=== PATIENT | female | born 1980 | race Caucasian/White ===

== ENCOUNTER 2018-10-22 11:37 | Outpatient (CLI) | payer BC ==
[~2018-10-22] VITALS: Ht 167.6 cm; Wt 113.4 kg
[~2018-10-22 11:37] MED LIST: ACHD5005 PO; ACHYD1T PO; ALBU17AE23 PO; CEPH500C PO; CYCL10TA9 PO; DCS100C PO; FAMO-106 PO; FAMO10TA43 PO; FAMO10TA71 PO; FLUC200T31 PO; IBP800T PO; NAPR-243 PO; PHEN1SUP3 PR; PREN-115 PO; PRM25T PO; PROG100C6 PR; PROG50VI3 IM; RT-ALBUINH IH
[2018-10-22 11:44] VITALS: BP 114/67
[2018-10-22] MEDS ORDERED: RAME8TAB18 PO (11:54)
[2018-10-22 12:11] LABS: BASOPHILS # (AUTO) 0.1 10^3/uL (0.0-0.1); BASOPHILS % (AUTO) 1 % (0-10); EOSINOPHILS # (AUTO) 0.1 10^3/uL (0.0-0.3); EOSINOPHILS % (AUTO) 1 % (0-10); HEMATOCRIT 44 % (35-52); LYMPHOCYTES # (AUTO) 2.2 X 10^3 (1.0-4.0); LYMPHOCYTES % (AUTO) 21 % (12-44); MEAN CORPUSCULAR HEMOGLOBIN 30 PG (25-34); MEAN CORPUSCULAR HGB CONC 34 G/DL (32-36); MEAN CORPUSCULAR VOLUME 88 FL (80-99); MEAN PLATELET VOLUME 9.7 FL (7.4-10.4); MONOCYTES # (AUTO) 1.1 X 10^3 (0.0-1.0); MONOCYTES % (AUTO) 10 % (0-12); NEUTROPHILS # (AUTO) 6.9 X 10^3 (1.8-7.8); NEUTROPHILS % (AUTO) 67 % (42-75); PLATELET COUNT 312 10^3/uL (130-400); RED BLOOD COUNT 4.98 10^6/uL (4.35-5.85); RED CELL DISTRIBUTION WIDTH 14.5 % (10.0-14.5); WHITE BLOOD COUNT 10.3 10^3/uL (4.3-11.0)
[2018-10-22 12:11] LABS: BILIRUBIN,URINE NEGATIVE (NEGATIVE); CLARITY,URINE CLEAR; COLOR,URINE YELLOW; GLUCOSE, URINE (UA) NEGATIVE (NEGATIVE); KETONES,URINE NEGATIVE (NEGATIVE); LEUKOCYTE ESTERASE ,URINE 2+ (NEGATIVE); NITRITE,URINE NEGATIVE (NEGATIVE); PH,URINE 5 (5-9); PROTEIN,URINE NEGATIVE (NEGATIVE); UROBILINOGEN,URINE NORMAL (NORMAL)
[2018-10-22] MEDS ORDERED: RT-ALBUINH IH (12:17)
[2018-10-22] MEDS ORDERED: LAMO200T2 PO (12:17)
[2018-10-22] MEDS ORDERED: LURA20TA PO (12:17)
[2018-10-22 12:25] LABS: BACTERIA,URINE FEW /HPF
[2018-10-27] MEDS ORDERED: HYDR-34 PO (16:37)
[2018-10-27] MEDS ORDERED: IBUP-844 PO (16:37)
[2018-10-27] MEDS ORDERED: DOCU100C37 PO (16:37)
[2018-10-27] MEDS ORDERED: SIME80TA16 PO (16:37)
== END 2018-10-22 12:10 | disposition home or self-care (01) ==
LOC: PREOP 11:37
PROVIDERS: ATTEND Obstetrics & Gynecology
DX: Z01.812 Encounter for preprocedural laboratory examination (principal); Z11.2 Encounter for screening for other bacterial diseases; N92.0 Excessive and frequent menstruation with regular cycle; N94.6 Dysmenorrhea, unspecified; N81.4 Uterovaginal prolapse, unspecified
CPT/HCPCS: 36415; 81000; 85025; 86850; 86900; 86901; 87081; 87088

== ENCOUNTER 2018-10-27 06:00 | Day surgery (SDC) | payer BC, MEDICAID ==
[~2018-10-27] VITALS: Ht 167.6 cm; Wt 113.4 kg
[~2018-10-27 06:00] MED LIST changes: +LAMO200T2 PO; +LURA20TA PO; +RAME8TAB18 PO
--- OUTSIDE RECORDS SUMMARY | 2018-10-27 06:18 | XMS REPORT ---
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 Active 369979861 Problem Recurrent major depressive disorder, in partial remission F33.41 Active [id number] ALLERGIES No Information ENCOUNTERS Encounter Location Date Diagnosis [facility] [address] [place] [address] 81249- 5487 Nov, [facility] [id number] [place] [address] 74846- 6633 Aug, Bipolar depression F31.30 and Social anxiety disorder F40.10 [facility] [address] [place] [address] 11476- 9419 Jul, Bipolar depression F31.30 and Social anxiety disorder F40.10 [facility] [address] [place] [address] 96909- 1646 Jun, Bipolar depression F31.30 [facility] [id number] [place] [address] 42079- 2475 Jun, Bipolar depression F31.30 and Social anxiety disorder F40.10 [facility] [address] [id number], [place] [id number] Jun, Hordeolum internum of right upper eyelid H00.021 [facility] [address] [facility] [id number] [place] [address] May, Bipolar depression F31.30 and Social anxiety disorder F40.[address] [facility] [address] [id number], [place] 594003603 Apr, 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 [facility] [address] [id number], [place] [id number] Apr, Moderate major depression F32.[address] [facility] [address] [id number], [place] 552243135 March, Recurrent major depressive disorder, in partial remission F33.[address] [facility] [address] [id number], [place] [address] March, Recurrent major depressive disorder, in partial remission F33.[address] [facility] [address] [id number], [place] 2095[address]327 March, Moderate major depression F32.1 and Thrush B37.0 [facility] [address] [id number], [place] [address] Feb, [facility] [address] [id number], [place] 734172998 Feb, Moderate major depression F32.1 [facility] [address] [id number], [place] [address] Feb, Moderate major depression F32.1 and Thrush B37.0 [facility] [address] [id number], [place] [id number] Feb, [facility] [address] [facility] [id number] [address] Dec, Right acute otitis media H66.91 ; Cough R05 and Tobacco abuse Z72.[address] [facility] [address] [id number], [place] [address] Nov, Moderate major depression F32.1 and Acute hemorrhoid K64.[address] [facility] [address] [id number], [place] [id number] 14 Oct, 2017 Moderate major depression F32.1 ; History of asthma Z87.09 ; Tobacco use Z72.0 ; Tobacco abuse counseling Z71.6 ; Meralgia paresthetica of left side G57.12 ; Sore throat J02.9 and Strep throat J02.[address] [id number], [place] [id number] 12 Oct, 2017 [facility] [place] [id number] [place] [address] 82823 -5800 11 Sep, 2017 Pharyngitis due to other organism J02.8 [place] [id number] [place] [address] 53126- 4572 28 Jan, 2017 [place] [id number] [place] [address] 14230- 7450 14 Jan, 2017 Routine gynecological examination Z01.[address] [id number], [place] 240[address]15506 04 Jan, 2017 Acute recurrent frontal sinusitis J01.11 and Fever and chills R50.9 [facility] [place] [id number] [place] [address] 77508 -0798 10 Dec, 2016 Fever, unspecified fever cause R50.9 and Acute non- recurrent maxillary sinusitis J01.[address] [place] [address] 84864- 8169 03 Aug, 2016 [facility] [address] [id number], [place] [id number] Apr, Strep throat J02.0 [facility] [id number] [place] [address] [id number] 06 Apr, 2016 Conjunctivitis of right eye, unspecified conjunctivitis type H10.9 and Strep throat J02.[address] [id number], [place] [address]005[address] 04 Apr, 2016 Sore throat J02.9 [facility] [address] [facility] [id number] [place] [address] Oct, [facility] [address] [facility] [id number], [place] 224998[address] 8667 Oct, [facility] [address] [facility] [id number] [address] March, IMMUNIZATIONS No Known Immunizations SOCIAL HISTORY Never Assessed REASON FOR VISIT Psychiatric f/u. Nimo CEDILLO, Mood/ sleep/ social anxiety PLAN OF CARE Activity Details Follow Up 3 Months Reason: VITAL SIGNS MEDICATIONS Medication Instructions Dosage Frequency Start Date End Date Duration Status Ramelteon 8 MG Orally Once a day for sleep 1 tablet at bedtime as needed Jul, Active ProAir HFA 108 (90 Base) MCG/ACT Inhalation every 4 hrs 2 puffs as needed 4h Active Lamictal 200 MG Orally at bedtime 1 tablets May, Active Pristiq 100 MG Orally Once a day 1 tablet 24h Oct, Active RESULTS No Results PROCEDURES No Known procedures INSTRUCTIONS MEDICATIONS ADMINISTERED No Known Medications MEDICAL (GENERAL) HISTORY Type Description Date Medical History asthma Medical History depression ( prozac, pristiq, zoloft, celexa, wellbutrin) Medical History anxiety Medical History Chronic low back pain- missing vertebra Medical History Spina befida - close Medical History Degenerative disc disease Surgical History cholecystectomy Hospitalization History childbirth
--- OUTSIDE RECORDS SUMMARY | 2018-10-27 06:18 | XMS REPORT ---
Author Author FELIPE ZHANG [facility] Address [address] [place] [address] Care Team Providers Care Supervisor Pumping Station Name Role Phone FELIPE ZHANG Unavailable PROBLEMS Type Condition ICD9-CM Code GWH22-FD Code Onset Dates Condition Status SNOMED Code Problem Strep throat J02.0 Active 26010210 Problem Bipolar depression F31.30 Active 61891069 Problem Social anxiety disorder F40.10 Active 69508402 Problem Moderate major depression F32.1 Active 449964 Problem Meralgia paresthetica of left side G57.12 Active 80512753 Problem 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 Active 336016934 Problem Recurrent major depressive disorder, in partial remission F33.41 Active 86750505 ALLERGIES No Information ENCOUNTERS Encounter Location Date Diagnosis [facility] [address] [place] [address] 12351- 6959 Jul, [facility] [id number] [place] [address] 46703- 6956 Jun, Bipolar depression F31.30 [facility] [id number] [place] [address] 84351- 5646 Jun, Bipolar depression F31.30 and Social anxiety disorder F40.[address] [id number], [place] 606[address] Jun, Hordeolum internum of right upper eyelid H00.021 [facility] [id number] [place] [address] 78507- 5475 May, Bipolar depression F31.30 and Social anxiety disorder F40.10 [facility] [address] [id number], [place] [id number] Apr, 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 [facility] [address] [id number], [place] [address]2290423 Apr, Moderate major depression F32.[address] [facility] [address] [id number], [place] [id number] March, Recurrent major depressive disorder, in partial remission F33.[address] [facility] [address] [id number], [place] [address]32 March, Recurrent major depressive disorder, in partial remission F33.[address] [facility] [address] [id number], [place] [id number] March, Moderate major depression F32.1 and Thrush B37.0 [facility] [id number], [place] [id number] Feb, [facility] [address] [id number], [place] 477240729 Feb, Moderate major depression F32.1 [facility] [address] [id number], [place] 850651356 Feb, Moderate major depression F32.1 and Thrush B37.0 [facility] [address] [id number], [place] [id number] Feb, [facility] [address] [facility] [place] [id number] [place] [address]32[address] Dec, Right acute otitis media H66.91 ; Cough R05 and Tobacco abuse Z72.[address] [facility] [address] [id number], [place] 912749458 Nov, Moderate major depression F32.1 and Acute hemorrhoid K64.9 [facility] [address] [id number], [place] 709353362 Oct, Moderate major depression F32.1 ; History of asthma Z87.09 ; Tobacco use Z72.0 ; Tobacco abuse counseling Z71.6 ; Meralgia paresthetica of left side G57.12 ; Sore throat J02.9 and Strep throat J02.[address] [facility] [address] [id number], [place] [id number] Oct, [facility] [address]100[place] [address] Sep, Pharyngitis due to other organism J02.8 [facility] [address]100[place] [address] Jan, [facility] [id number] [place] [address] 16639- 3635 Jan, Routine gynecological examination Z01.[address] [id number], [place] 208845974 Jan, Acute recurrent frontal sinusitis J01.11 and Fever and chills R50.9 [facility] [address]100[place] [address] 10 Dec, 2016 Fever, unspecified fever cause R50.9 and Acute non- recurrent maxillary sinusitis J01.00 [facility] [address]100[place] [address] Aug, [address] [id number], [place] 7434[address] Apr, Strep throat J02.0 [address] [address] Apr, Conjunctivitis of right eye, unspecified conjunctivitis type H10.9 and Strep throat J02.[address] [id number], [place] 903454338 Apr, Sore throat J02.9 [facility] [address] [place] [address] 109052- 7071 Oct, [facility] [address]100[place] [address] 1257 Oct, [facility] [id number] [place] [address] 39220- 2511 March, IMMUNIZATIONS No Known Immunizations SOCIAL HISTORY Never Assessed REASON FOR VISIT f/archie Suero RN, depression PLAN OF CARE Activity Details Follow Up 6 Weeks Reason: VITAL SIGNS Height 67 in 2018-06-23 Weight 246 lbs 2018-06-23 Heart Rate 90 bpm 2018-06-23 Respiratory Rate 20 2018-06-23 BMI 38.52 kg/m2 2018-06-23 Blood pressure systolic 132 mmHg 2018-06-23 Blood pressure diastolic 86 mmHg 2018-06-23 MEDICATIONS Medication Instructions Dosage Frequency Start Date End Date Duration Status Lamictal 100 mg Orally at bedtime 1 tablets May, 30 day(s) Active Polytrim 59938-4.1 UNIT/ML Ophthalmic Four times a day 1 drop into affected eye 6h Jun, Jun, 5 day(s) Active ProAir HFA 108 (90 Base) MCG/ACT Inhalation every 4 hrs 2 puffs as needed 4h Active Pristiq 50 mg Orally Once a day 1 tablet 24h Oct, Active Quetiapine Fumarate 25 MG Orally at bedtime as needed for sleep 1 or 2 tablet Jun, 30 day(s) Active RESULTS No Results PROCEDURES No Known [...]
--- OUTSIDE RECORDS SUMMARY | 2018-10-27 06:18 | XMS REPORT ---
Author Author FELIPE ZHANG [facility] Address [address] [place] [address] Care Team Providers Care Advertising Dispatch Clerks Supervisor Name Role Phone LEATHA FELIPE Unavailable PROBLEMS Type Condition ICD9-CM Code OBG65-ZC Code Onset Dates Condition Status SNOMED Code Problem Strep throat J02.0 Active 30310408 Problem Bipolar depression F31.30 Active 14436071 Problem Social anxiety disorder F40.10 Active 41466799 Problem Moderate major depression F32.1 Active 016639 Problem Meralgia paresthetica of left side G57.12 Active 94110752 Problem 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 Active 674497249 Problem Recurrent major depressive disorder, in partial remission F33.41 Active 73800145 ALLERGIES No Information ENCOUNTERS Encounter Location Date Diagnosis [facility] [address]100[place] [address] Nov, [facility] [id number] [place] [address] 98608- 9922 Sep, [address] [address] [id number] [place] [address] Sep, BMI 40.0-44.9, adult Z68.41 and Acute nasopharyngitis J00 [facility] [address] [address] Sep, [facility] [address] [place] [address] 02202- 7184 Aug, Bipolar depression F31.30 and Social anxiety disorder F40.10 [facility] [address] [address] 0[address] Jul, Bipolar depression F31.30 and Social anxiety disorder F40.10 [facility] [address] [id number] [address] Jun, Bipolar depression F31.30 [facility] [address] [place] [id number] [address] Jun, Bipolar depression F31.30 and Social anxiety disorder F40.10 [facility] [id number] [place] [address] Jun, Hordeolum internum of right upper eyelid H00.021 [facility] [address] [place] [id number][place] [address]2 May, Bipolar depression F31.30 and Social anxiety disorder F40.10 [facility] [address] [id number] [place] [id number] Apr, 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 [facility] [address] [id number] [place] [address]506[address] Apr, Moderate major depression F32.1 [facility] [id number] [place] [id number] March, Recurrent major depressive disorder, in partial remission F33.41 [facility] [address] [id number] [place] 46[address] March, Recurrent major depressive disorder, in partial remission F33.41 [facility] [address] [id number] [place] 91269[address]32 March, Moderate major depression F32.1 and Thrush B37.0 [facility] [address] [id number] [place] [address]444 Feb, [facility] [address] [id number] [place] 739450510 Feb, Moderate major depression F32.[address] [facility] [address] [id number] [place] 27[address] Feb, Moderate major depression F32.1 and Thrush B37.0 [facility] [address] [id number] [place] 449480519 Feb, [facility] [address] [address] Dec, Right acute otitis media H66.91 ; Cough R05 and Tobacco abuse Z72.[address] [id number] [place] 513[address]274 Nov, Moderate major depression F32.1 and Acute hemorrhoid K64.[address] [id number] [place] [address] [id number] Oct, Moderate major depression F32.1 ; History of asthma Z87.09 ; Tobacco use Z72.0 ; Tobacco abuse counseling Z71.6 ; Meralgia paresthetica of left side G57.12 ; Sore throat J02.9 and Strep throat J02.[address] [id number] [place] 6[address]77[address] Oct, [facility] [id number] [place] [address] 60629 -4804 Sep, Pharyngitis due to other organism J02.8 [place] [id number] [place] [address] 69143- 0915 Jan, [place] [id number] [place] [address] 85408- 7852 Jan, Routine gynecological examination Z01.[address] [id number] [place] [address] [id number] 04 Jan, 2017 Acute recurrent frontal sinusitis J01.11 and Fever and chills R50.9 [facility] [id number] [place] [address] 23604 -5662 10 Dec, 2016 Fever, unspecified fever cause R50.9 and Acute non- recurrent maxillary sinusitis J01.00 [place] [address] [place] [address] 29147- 2304 Aug, [address] [id number] [place] [id number] Apr, Strep throat J02.0 [place] [address] [facility] [address] [id number] [place] [address] Apr, Conjunctivitis of right eye, unspecified conjunctivitis type H10.9 and Strep throat J02.0 [place] [address] [facility] [address] [id number] [place] [address] Apr, Sore throat J02.9 [facility] [address] [place] [id number][place] [address]- [address] Oct, [place] [address] [place] [id number] [address]- 2546 Oct, [place] [address] [place] [id number], [place] [address]- [address] March, IMMUNIZATIONS No Known Immunizations SOCIAL HISTORY Never Assessed REASON FOR VISIT Medication question PLAN OF CARE VITAL SIGNS MEDICATIONS Medication Instructions Dosage Frequency Start Date End Date Duration Status Latuda 20 mg Orally for depression. Take in the evening with a meal (350 calories) 1 tablet Sep, 30 day(s) Active RESULTS No Results PROCEDURES [...]
--- OUTSIDE RECORDS SUMMARY | 2018-10-27 06:18 | XMS REPORT ---
Author Author NATALIE ARGUETA [facility] Address [address] [place] [address] Care Team Providers Care Electrical Instrument Repairer Name Role Phone NATALIE ARGUETA Unavailable PROBLEMS Type Condition ICD9-CM Code GFB22-VR Code Onset Dates Condition Status SNOMED Code Problem Strep throat J02.0 Active 26325718 Problem Bipolar depression F31.30 Active 13422320 Problem Social anxiety disorder F40.10 Active 48509325 Problem Moderate major depression F32.1 Active 074683 Problem Meralgia paresthetica of left side G57.12 Active 00272736 Problem 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 Active 472793958 Problem Recurrent major depressive disorder, in partial remission F33.41 Active 03218576 ALLERGIES Substance Reaction Event Type Date Status Depo-Provera fluid retention Drug Allergy Jun, Active Abilify GI distress Drug Allergy Jun, Active ENCOUNTERS Encounter Location Date Diagnosis [facility] [address] [place] [address] 75171- 3401 Jul, [facility] [address] [place] [address] 10971- 7305 Jun, Bipolar depression F31.30 [facility] [id number] [place] [address] 20640- 4715 Jun, Bipolar depression F31.30 and Social anxiety disorder F40.[address] [id number] [place] [id number] Jun, Hordeolum internum of right upper eyelid H00.021 [facility] [address] [place] [address] 98749- 0033 May, Bipolar depression F31.30 and Social anxiety disorder F40.10 [facility] [address] [id number] [place] [id number] Apr, 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 [facility] [address] [id number] [place] [address] Apr, Moderate major depression F32.[address] [facility] [address] [id number] [place], [place] 318357561 March, Recurrent major depressive disorder, in partial remission F33.[address] [facility] [address] [id number] [place], [place] 811242824 March, Recurrent major depressive disorder, in partial remission F33.[address] [facility] [address] [id number] [place] 62[address] March, Moderate major depression F32.1 and Thrush B37.0 [facility] [address] [id number] [place] [address] Feb, [facility] [address] [id number] [place], [place] [id number] Feb, Moderate major depression F32.1 [facility] [address] [id number] [place], [place] 732991544 Feb, Moderate major depression F32.1 and Thrush B37.0 [facility] [address] [id number] CITY, [place] [id number] Feb, [facility] [address] [facility] [id number], [place] [address]75 [address] Dec, Right acute otitis media H66.91 ; Cough R05 and Tobacco abuse Z72.0 [facility] [address] [id number] [place], [place] 24[address]657 Nov, Moderate major depression F32.1 and Acute hemorrhoid K64.9 [facility] [id number] [place], [place] 338369078 Oct, Moderate major depression F32.1 ; History of asthma Z87.09 ; Tobacco use Z72.0 ; Tobacco abuse counseling Z71.6 ; Meralgia paresthetica of left side G57.12 ; Sore throat J02.9 and Strep throat J02.[address] [id number] [place] [id number] Oct, [facility] [address] [place] [address] 25434 -2564 Sep, Pharyngitis due to other organism J02.8 [facility] [address] [address]57- 6362 Jan, [place] [id number] [place] [address] 33002- 1329 14 Jan, 2017 Routine gynecological examination Z01.419 [address] [place] [address] [id number] Jan, Acute recurrent frontal sinusitis J01.11 and Fever and chills R50.9 [facility] IN [facility] [id number] [place] [address] 72661 -0132 10 Dec, 2016 Fever, unspecified fever cause R50.9 and Acute non- recurrent maxillary sinusitis J01.00 [place] [id number] [place] [address] 91398- 1115 Aug, [address] [place] [address] [id number] Apr, Strep throat J02.0 [address] [place] [address] [id number] Apr, Conjunctivitis of right eye, unspecified conjunctivitis type H10.9 and Strep throat J02.0 [address] [place] [address] [id number] Apr, Sore throat J02.9 [facility] [id number] [place] [address] 03054- 0357 Oct, [place] [id number] [place] [address] 60006- 7224 Oct, [facility] [address] [facility] [id number] [place] [address] March, IMMUNIZATIONS No Known Immunizations SOCIAL HISTORY Never Assessed REASON FOR VISIT Right eye swollen flipped up eye lid last night and puss came out from under it looked like pocket under it. ADaniels specialist physician PLAN OF CARE Activity Details Follow Up prn Reason: VITAL SIGNS Height 67 in 2018-06-20 Weight 248.5 lbs 2018-06-20 Temperature 98.5 degrees Fahrenheit 2018-06-20 Heart Rate 88 bpm 2018-06-20 Respiratory Rate 18 2018-06-20 BMI 38.92 kg/m2 2018-06-20 Blood pressure systolic 120 mmHg 2018-06-20 Blood pressure diastolic 82 mmHg 2018-06-20 MEDICATIONS Medication Instructions Dosage Frequency Start Date End Date Duration Status ProAir HFA 108 (90 Base) MCG/ACT Inhalation every 4 hrs 2 puffs as needed 4h Active Polytrim 18961-9.1 UNIT/ML Ophthalmic Four times a day 1 drop into affected eye 6h Jun, Jun, 5 day(s) Active Pristiq 50 mg Orally Once a day 1 tablet 24h Oct, Active Lamictal 25 MG Orally for 2 weeks. On 06/02 take 2 tablets at bedtime and continue 1 tablets May, 30 day(s) Active RESULTS No Results PROCEDURES [...]
--- OUTSIDE RECORDS SUMMARY | 2018-10-27 06:18 | XMS REPORT ---
Author Author FELIPE ZHANG [facility] Address [address] [place] [address] Care Team Providers Care Biomedical Equipment Technician Name Role Phone LEATHA FELIPE Unavailable PROBLEMS Type Condition ICD9-CM Code XNH17-HJ Code Onset Dates Condition Status SNOMED Code Problem Strep throat J02.0 Active 87532252 Problem Bipolar depression F31.30 Active 69940903 Problem Social anxiety disorder F40.10 Active 70405825 Problem Moderate major depression F32.1 Active 163752 Problem Meralgia paresthetica of left side G57.12 Active 18860015 Problem 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 Active 671271671 Problem Recurrent major depressive disorder, in partial remission F33.41 Active 69138097 ALLERGIES Substance Reaction Event Type Date Status Depo-Provera fluid retention Drug Allergy Jul, Active Ambien hallucination Drug Allergy Jul, Active Abilify GI distress Drug Allergy Jul, Active ENCOUNTERS Encounter Location Date Diagnosis [facility] [address] [id number] [address] Aug, [facility] [address], [place] [address] Jul, Bipolar depression F31.30 and Social anxiety disorder F40.10 [facility] [address] [id number], [place] [address] Jun, Bipolar depression F31.30 [facility] [address] [place] [address] Jun, Bipolar depression F31.30 and Social anxiety disorder F40.[address] [id number][place] 586[address] Jun, Hordeolum internum of right upper eyelid H00.021 [facility] [address] [facility] [id number] [place] [address] May, Bipolar depression F31.30 and Social anxiety disorder F40.[address] [facility] [address] [id number], [place] [id number] Apr, 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 [facility] [address] [id number], [place] 835135366 Apr, Moderate major depression F32.[address] [facility] [address] [id number], [place] [id number] March, Recurrent major depressive disorder, in partial remission F33.[address] [facility] [address] [id number], [place] 144337214 March, Recurrent major depressive disorder, in partial remission F33.[address] [facility] [address] [id number], [place] [id number] March, Moderate major depression F32.1 and Thrush B37.[address] [facility] [address] [id number], [place] [id number] Feb, [facility] [address] [id number][place] [id number] Feb, Moderate major depression F32.[address] [facility] [address] [id number], [place] 825299526 Feb, Moderate major depression F32.1 and Thrush B37.0 [facility] [address] [id number], [place] [id number] Feb, [facility] [address] [facility] [id number], [place] [address] Dec, Right acute otitis media H66.91 ; Cough R05 and Tobacco abuse Z72.[address] [facility] [address] [id number], [place] [id number] Nov, Moderate major depression F32.1 and Acute hemorrhoid K64.[address] [facility] [address] [id number], [place] 0399[address] 14 Oct, 2017 Moderate major depression F32.1 ; History of asthma Z87.09 ; Tobacco use Z72.0 ; Tobacco abuse counseling Z71.6 ; Meralgia paresthetica of left side G57.12 ; Sore throat J02.9 and Strep throat J02.[address] [id number], [place] [id number] 12 Oct, 2017 [facility]ALK [facility] [address] [place] [address] 11 Sep, 2017 Pharyngitis due to other organism J02.8 [id number] [place] [address] 28 Jan, 2017 [id number] [place] [address] 14 Jan, 2017 Routine gynecological examination Z01.[address] [id number], [place] [id number] 04 Jan, 2017 Acute recurrent frontal sinusitis J01.11 and Fever and chills R50.9 [facility] [address] [place] [address] 10 Dec, 2016 Fever, unspecified fever cause R50.9 and Acute non- recurrent maxillary sinusitis J01.00 [address] [place] [address] 03 Aug, [address] [id number], [place] [id number] Apr, Strep throat J02.[id number] [place] [id number] 06 Apr, 2016 Conjunctivitis of right eye, unspecified conjunctivitis type H10.9 and Strep throat J02.[address] [id number], [place] [id number] Apr, Sore throat J02.9 [facility] [address] [facility] [id number], [place] [address] Oct, [facility] [address] [facility] [id number], [place] [address] Oct, [facility] [address] [facility] [id number], [place] [address] March, IMMUNIZATIONS No Known Immunizations SOCIAL HISTORY Never Assessed REASON FOR VISIT f/u Venkat, mood / anxiety PLAN OF CARE Activity Details Follow Up 6 Weeks Reason: VITAL SIGNS Height 67 in 2018-08-06 Weight 252.2 lbs 2018-08-06 Heart Rate 100 bpm 2018-08-06 Respiratory Rate 22 2018-08-06 BMI 39.50 kg/m2 2018-08-06 Blood pressure systolic 144 mmHg 2018-08-06 Blood pressure diastolic 78 mmHg 2018-08-06 MEDICATIONS Medication Instructions Dosage Frequency Start Date End Date Duration Status Pristiq 50 mg Orally Once a day 1 tablet 24h Oct, Active Ramelteon 8 MG Orally Once a day for sleep 1 tablet at bedtime as needed Jul, Active Lamictal 200 MG Orally at bedtime 1 tablets May, Active ProAir HFA 108 (90 Base) MCG/ACT Inhalation every 4 hrs 2 puffs as needed 4h Active RESULTS No Results PROCEDURES No Known [...]
--- OUTSIDE RECORDS SUMMARY | 2018-10-27 06:18 | XMS REPORT ---
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 Active 682161308 Problem Recurrent major depressive disorder, in partial remission F33.41 Active 08204958 ALLERGIES No Information ENCOUNTERS Encounter Location Date Diagnosis [facility] [address] [place] [address] Nov, [facility] [id number] [place] [address]- [address] Sep, [facility] [id number] [place] [address] Aug, Bipolar depression F31.30 and Social anxiety disorder F40.10 [facility] [address] [place] [address] Jul, Bipolar depression F31.30 and Social anxiety disorder F40.10 [facility] [address] [place] [address]- [address] Jun, Bipolar depression F31.30 [facility] [address], [place] [address] Jun, Bipolar depression F31.30 and Social anxiety disorder F40.10 [facility] [address] [id number], [place] [id number] Jun, Hordeolum internum of right upper eyelid H00.021 [facility] [address], [place] [address] May, Bipolar depression F31.30 and Social anxiety disorder F40.10 [facility] [address] [id number], [place] [id number] Apr, 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 [facility] [address] [id number], [place] 334340152 Apr, Moderate major depression F32.1 [facility] [address] [id number], [place] [id number] March, Recurrent major depressive disorder, in partial remission F33.41 [facility] [address] [id number], [place] 406698306 March, Recurrent major depressive disorder, in partial remission F33.[address] [facility] [address] [id number], [place] 136064356 March, Moderate major depression F32.1 and Thrush B37.0 [facility] [address] [id number], [place] [id number] Feb, [facility] [address] [id number], [place] [id number] Feb, Moderate major depression F32.[address] [facility] [address] [id number], [place] 406646985 Feb, Moderate major depression F32.1 and Thrush B37.0 [facility] [address] [id number], [place] [id number] Feb, [facility] [address] [facility] [id number], [place] [address] Dec, Right acute otitis media H66.91 ; Cough R05 and Tobacco abuse Z72.0 [facility] [address] [id number], [place] [id number] Nov, Moderate major depression F32.1 and Acute hemorrhoid K64.[address] [id number], [place] [id number] Oct, Moderate major depression F32.1 ; History of asthma Z87.09 ; Tobacco use Z72.0 ; Tobacco abuse counseling Z71.6 ; Meralgia paresthetica of left side G57.12 ; Sore throat J02.9 and Strep throat J02.[address] [id number], [place] [id number] Oct, [facility]ALK IN [facility] [id number] [place] [address]19 -[address] Sep, Pharyngitis due to other organism J02.8 [id number] [place] [address] 80552- 6206 Jan, [facility] [id number] [place] [address] 06911- [address]27 14 Jan, 2017 Routine gynecological examination Z01.[address] [id number], [place] [id number] Jan, Acute recurrent frontal sinusitis J01.11 and Fever and chills R50.9 [facility] [address] [place] [address] 10 Dec, 2016 Fever, unspecified fever cause R50.9 and Acute non- recurrent maxillary sinusitis J01.00 [facility] [address], [place] [address] Aug, [address] [id number], [place] 997247270 Apr, Strep throat J02.[address] [id number], [place] 462675544 Apr, Conjunctivitis of right eye, unspecified conjunctivitis type H10.9 and Strep throat J02.[address] [id number] [place] [address] Apr, Sore throat J02.9 [facility] [address] [facility] [id number][place]18[place] Oct, [facility] [address] [facility] [id number], [place] 29401086- 4717 Oct, [facility] [address] [facility] [id number], [place] 27400700[address] March, IMMUNIZATIONS No Known Immunizations SOCIAL HISTORY Never Assessed REASON FOR VISIT Medication question PLAN OF CARE VITAL SIGNS MEDICATIONS Unknown Medications RESULTS No Results PROCEDURES No Known procedures [...]
--- OUTSIDE RECORDS SUMMARY | 2018-10-27 06:18 | XMS REPORT ---
Author Author FELIPE ZHNAG [facility] Address [address] [place] [address] Care Team Providers Care Route Process Administrator Name Role Phone LEATHA FELIPE Unavailable PROBLEMS Type Condition ICD9-CM Code XRU25-SW Code Onset Dates Condition Status SNOMED Code Problem Strep throat J02.0 Active 77612779 Problem Bipolar depression F31.30 Active 34489771 Problem Social anxiety disorder F40.10 Active 12664047 Problem Moderate major depression F32.1 Active 359440 Problem Meralgia paresthetica of left side G57.12 Active 93696928 Problem 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 Active 763243924 Problem Recurrent major depressive disorder, in partial remission F33.41 Active 20687888 ALLERGIES No Information ENCOUNTERS Encounter Location Date Diagnosis [facility] [address] [place] [address] 6[address]38- [address] Aug, [facility] [id number] [place] [address] 67431- 9925 Jul, Bipolar depression F31.30 and Social anxiety disorder F40.10 [facility] [address] [place] [address] 45604- 8398 Jun, Bipolar depression F31.30 [facility] [id number] [place] [address] 61187- 2602 Jun, Bipolar depression F31.30 and Social anxiety disorder F40.10 [facility] [address] [id number], [place] 701563773 Jun, Hordeolum internum of right upper eyelid H00.021 [facility] [id number] [place] [address] 33785- 6586 May, Bipolar depression F31.30 and Social anxiety disorder F40.10 [facility] [address] [id number], [place] [id number] 15 Apr, 2018 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 [facility] [address] [id number], [place] 327953058 Apr, Moderate major depression F32.[address] [facility] [address] [id number], [place] [id number] March, Recurrent major depressive disorder, in partial remission F33.[address] [facility] [address] [id number], [place] [id number] March, Recurrent major depressive disorder, in partial remission F33.[address] [facility] [address] [id number], [place] 757370324 March, Moderate major depression F32.1 and Thrush B37.0 [facility] [address] [id number], [place] [id number] Feb, [facility] [address] [id number], [place] 468359425 Feb, Moderate major depression F32.1 [facility] [address] [id number], [place] 562767109 Feb, Moderate major depression F32.1 and Thrush B37.0 [facility] [address] [id number], [place] [id number] Feb, [facility] [address] [facility] [id number], [place] 97559696 [address] Dec, Right acute otitis media H66.91 ; Cough R05 and Tobacco abuse Z72.0 [facility] [address] [id number], [place] 350992760 Nov, Moderate major depression F32.1 and Acute hemorrhoid K64.[address] [facility] [address] [id number], [place] 093709491 Oct, Moderate major depression F32.1 ; History of asthma Z87.09 ; Tobacco use Z72.0 ; Tobacco abuse counseling Z71.6 ; Meralgia paresthetica of left side G57.12 ; Sore throat J02.9 and Strep throat J02.0 [id number] [id number] Oct, [facility] [address] [place] [address]4717 -[address] Sep, Pharyngitis due to other organism J02.8 [facility] [id number] [place] [address] 39756- 0203 Jan, [facility] [address] [address] Jan, Routine gynecological examination Z01.419 [address]005[address] [address] Jan, Acute recurrent frontal sinusitis J01.11 and Fever and chills R50.9 [facility] [address] [place] [address] 28794 -[address]8 Dec, Fever, unspecified fever cause R50.9 and Acute non- recurrent maxillary sinusitis J01.00 [facility] [address] [id number], [place] [address] Aug, [address] [id number], [place] [id number] Apr, Strep throat J02.0 [address] [place] [address] [id number] 06 Apr, 2016 Conjunctivitis of right eye, unspecified conjunctivitis type H10.9 and Strep throat J02.0 [address] [place] [address] [id number] Apr, Sore throat J02.9 [facility] [address] [place] [address] 54702- 3586 Oct, [facility] [address] 76119KS [place] [address] Oct, [facility] [address] [facility] [id number] [place] [address] March, IMMUNIZATIONS No Known Immunizations SOCIAL HISTORY Never Assessed REASON FOR VISIT medication PLAN OF CARE VITAL SIGNS MEDICATIONS Medication Instructions Dosage Frequency Start Date End Date Duration Status Lamictal 200 MG Orally at bedtime 1 tablets May, Active RESULTS No Results PROCEDURES No Known [...]
--- OUTSIDE RECORDS SUMMARY | 2018-10-27 06:19 | XMS REPORT ---
Author Author JOEL WESTFALL [facility] Address Unknown Phone Unavailable Care Team Providers Care Artist Model Name Role Phone JOEL WESTFALL Unavailable Unavailable PROBLEMS Type Condition ICD9-CM Code VUW22-UG Code Onset Dates Condition Status SNOMED Code Problem Strep throat J02.0 Active 79012231 Problem Bipolar depression F31.30 Active 78691184 Problem Social anxiety disorder F40.10 Active 20222081 Problem Moderate major depression F32.1 Active 960224 Problem Meralgia paresthetica of left side G57.12 Active 96581689 Problem 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 Active 829971674 Problem Recurrent major depressive disorder, in partial remission F33.41 Active 03528702 ALLERGIES No Information ENCOUNTERS Encounter Location Date Diagnosis [facility] [address] [id number], [place] [address] Jun, [facility] [address] [facility] [id number][place] [address] May, Bipolar depression F31.30 and Social anxiety disorder F40.10 [facility] [address] [id number] [place]STLE[place] [id number] Apr, 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 [facility] [address] [id number] CASTLE, [place] 148957568 Apr, Moderate major depression F32.1 [facility] [address] [id number] [place] 8319536[address] March, Recurrent major depressive disorder, in partial remission F33.41 [facility] [address] [id number] CASTLE, [place] 575696306 March, Recurrent major depressive disorder, in partial remission F33.41 [facility] [address] [id number] CASTLE, [place] [id number] March, Moderate major depression F32.1 and Thrush B37.0 [facility] [address] [id number] CASTLE, [place] [id number] Feb, [facility] [address] [id number] CASTLE, [place] 953798655 Feb, Moderate major depression F32.1 [facility] [address] [facility] [address] [id number] [place]STLE, [place] [id number] Feb, Moderate major depression F32.1 and Thrush B37.0 [facility] [address] [id number] CASTLE, [place] [id number] Feb, [facility] [address] [id number] [address] Dec, Right acute otitis media H66.91 ; Cough R05 and Tobacco abuse Z72.0 [facility] [address] [place] [address] AV [id number] CASTLE, [place] [id number] Nov, Moderate major depression F32.1 and Acute hemorrhoid K64.9 [facility] [address] [place] [address] AVE [id number] CASTLE, [place] 562766289 Oct, Moderate major depression F32.1 ; History of asthma Z87.09 ; Tobacco use Z72.0 ; Tobacco abuse counseling Z71.6 ; Meralgia paresthetica of left side G57.12 ; Sore throat J02.9 and Strep throat J02.0 [facility] [address] [place] [address] AVE [id number] CASTLE, [place] [id number] Oct, [facility] [address] [facility] [id number], [place] [address] Sep, Pharyngitis due to other organism J02.8 [facility] [address] [id number] [address] 28 Jan, 2017 [facility] [address] [id number] [address] 14 Jan, 2017 Routine gynecological examination Z01.419 [facility] [address] [id number] CASTLE[place] [id number] Jan, Acute recurrent frontal sinusitis J01.11 and Fever and chills R50.9 [facility] [address]00565100[place] [address] 10 Dec, 2016 Fever, unspecified fever cause R50.9 and Acute non- recurrent maxillary sinusitis J01.00 [facility] [address]00565100[place], [place] [address] Aug, [address] [id number] CASTLE[place] [id number] Apr, Strep throat J02.0 [address] [place] [address] [id number] Apr, Conjunctivitis of right eye, unspecified conjunctivitis type H10.9 and Strep throat J02.0 [address]00565100[place] [id number] Apr, Sore throat J02.9 [facility] [address]00565100[place] [address] Oct, [facility] [address] [place] [address]33- [address]118 Oct, [facility] [address]00565100[place] [address] March, IMMUNIZATIONS No Known Immunizations SOCIAL HISTORY Never Assessed REASON FOR VISIT [facility] Contact PLAN OF CARE Activity Details Follow Up Will likely use services in near future. Reason:hx. of depression VITAL SIGNS MEDICATIONS Unknown Medications RESULTS No [...]
--- OUTSIDE RECORDS SUMMARY | 2018-10-27 06:19 | XMS REPORT ---
Author Author ANGELA TELLO [facility] Address [address] [place] [address] Care Team Providers Care [place] Examiner Name Role Phone ANGELA TELLO Unavailable PROBLEMS Type Condition ICD9-CM Code QIC73-IP Code Onset Dates Condition Status SNOMED Code Problem Strep throat J02.0 Active 79075119 Problem Bipolar depression F31.30 Active 20555016 Problem Social anxiety disorder F40.10 Active 86158047 Problem Moderate major depression F32.1 Active 848988 Problem Meralgia paresthetica of left side G57.12 Active 25928036 Problem 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 Active 422952681 Problem Recurrent major depressive disorder, in partial remission F33.41 Active [id number] ALLERGIES No Information ENCOUNTERS Encounter Location Date Diagnosis [facility] [address] [facility] [id number], [place] [address] Jun, [facility] [address] [id number], [place] [address] May, Bipolar depression F31.30 and Social anxiety disorder F40.[address] [id number], [place] [id number] Apr, 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 [address] [id number], [place] [id number] March, Recurrent major depressive disorder, in partial remission F33.41 [facility] [address] [id number], [place] [address]187 March, Recurrent major depressive disorder, in partial remission F33.[address] [facility] [address] [id number], [place] [address] March, Moderate major depression F32.1 and Thrush B37.0 [facility] [address] [id number], [place] [id number] Feb, [facility] [address] [id number], [place] [address] Feb, Moderate major depression F32.1 [facility] [address] [id number], [place] [id number] Feb, Moderate major depression F32.1 and Thrush B37.0 [facility] [address] [id number], [place] 1918[address] Feb, [facility] [address]00565100[place], [place] [address] Dec, Right acute otitis media H66.91 ; Cough R05 and Tobacco abuse Z72.0 [facility] [address] [id number], [place] [address] Nov, Moderate major depression F32.1 and Acute hemorrhoid K64.9 [facility] [address] [place] [address] AVE [id number], [place] [address] Oct, Moderate major depression F32.1 ; History of asthma Z87.09 ; Tobacco use Z72.0 ; Tobacco abuse counseling Z71.6 ; Meralgia paresthetica of left side G57.12 ; Sore throat J02.9 and Strep throat J02.0 [facility] [address] [id number], [place] [address] Oct, [facility] [address] [place] [address] Sep, Pharyngitis due to other organism J02.8 [facility] [address] [place] [address] Jan, [facility] [id number] [place] [address] Jan, Routine gynecological examination Z01.419 [facility] [address] [facility] [address] [id number], [place] [address] Jan, Acute recurrent frontal sinusitis J01.11 and Fever and chills R50.9 [facility] [address] [id number] [address] Dec, 2016 Fever, unspecified fever cause R50.9 and Acute non- recurrent maxillary sinusitis J01.00 [facility] [address] [facility] [id number], [place] [address] Aug, [facility] [address] [id number], [place] [id number] Apr, Strep throat J02.[address] [id number], [place] [address]85 Apr, Conjunctivitis of right eye, unspecified conjunctivitis type H10.9 and Strep throat J02.[address] [id number], [place] [address]403 Apr, Sore throat J02.9 [facility] [address]005[address]100[place], [place] [address] Oct, [facility] [address]100[place], [place] [address] Oct, [facility] [address] [place] [address] March, IMMUNIZATIONS No Known Immunizations SOCIAL HISTORY Never Assessed REASON FOR VISIT med [facility] b pricing PLAN OF CARE VITAL SIGNS MEDICATIONS Medication Instructions Dosage Frequency Start Date End Date Duration Status Aripiprazole 5 mg Orally Once a day 1 tablet 24h Feb, Active RESULTS No Results PROCEDURES No Known [...]
--- OUTSIDE RECORDS SUMMARY | 2018-10-27 06:19 | XMS REPORT ---
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 Active 426143955 Problem Recurrent major depressive disorder, in partial remission F33.41 Active 62475443 ALLERGIES No Information ENCOUNTERS Encounter Location Date Diagnosis [facility] [address] [facility] [id number], [place] [address] Jun, [facility] [address] [id number], [place] [address] May, Bipolar depression F31.30 and Social anxiety disorder F40.[address] [id number], [place] [address] Apr, 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 [facility] [address] [id number], [place] [address] Apr, Moderate major depression F32.1 [facility] [address] [facility] [address] [id number], [place] [address]37 March, Recurrent major depressive disorder, in partial remission F33.41 [facility] [address] [id number], [place] 391704416 March, Recurrent major depressive disorder, in partial remission F33.[address] [facility] [address] [id number], [place] [id number] March, Moderate major depression F32.1 and Thrush B37.0 [facility] [address] [id number], [place] [address] Feb, [facility] [address] [id number], [place] [address] Feb, Moderate major depression F32.1 [facility] [address] [id number], [place] [address] Feb, Moderate major depression F32.1 and Thrush B37.0 [facility] [address] [id number], [place] [address] Feb, [facility] [address]00565100[place], [place] [address] Dec, Right acute otitis media H66.91 ; Cough R05 and Tobacco abuse Z72.0 [facility] [address] [id number], [place] [address] Nov, Moderate major depression F32.1 and Acute hemorrhoid K64.9 [facility] [address] [place] [address] AVE [id number], [place] [address]314 Oct, Moderate major depression F32.1 ; History of asthma Z87.09 ; Tobacco use Z72.0 ; Tobacco abuse counseling Z71.6 ; Meralgia paresthetica of left side G57.12 ; Sore throat J02.9 and Strep throat J02.0 [facility] [address] [id number], [place] [address] Oct, [facility] [address] [place] [address] Sep, Pharyngitis due to other organism J02.8 [facility] [address] [place] [address] Jan, [facility] [id number] [place] [address] Jan, Routine gynecological examination Z01.419 [facility] [address] [facility] [address] [id number], [place] [address] Jan, Acute recurrent frontal sinusitis J01.11 and Fever and chills R50.9 [facility] [address]00565100[place], [place] [address] 10 Dec, 2016 Fever, unspecified fever cause R50.9 and Acute non- recurrent maxillary sinusitis J01.00 [facility] [address] [id number], [place] [address] Aug, [facility] [address] [id number], [place] [address] Apr, Strep throat J02.0 [address]00565100[place] [address] Apr, Conjunctivitis of right eye, unspecified conjunctivitis type H10.9 and Strep throat J02.[address] [id number], [place] [address] Apr, Sore throat J02.9 [facility] [address] [place] [address] 812692[address] Oct, [facility] [address] [place] [address] Oct, [facility] [address] [place] [address] March, IMMUNIZATIONS No Known Immunizations SOCIAL HISTORY Never Assessed REASON FOR VISIT PLAN OF CARE VITAL SIGNS MEDICATIONS Unknown [...]
--- OUTSIDE RECORDS SUMMARY | 2018-10-27 06:19 | XMS REPORT ---
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 Active 635831709 Problem Recurrent major depressive disorder, in partial remission F33.41 Active [id number] ALLERGIES No Information ENCOUNTERS Encounter Location Date Diagnosis [facility] [address]00565100[place], [place] [address] Jul, [facility] [id number] [place] [address] Jun, Bipolar depression F31.30 and Social anxiety disorder F40.[address] [id number], [place] [address] Jun, Hordeolum internum of right upper eyelid H00.021 [address] [id number] [address] May, Bipolar depression F31.30 and Social anxiety disorder F40.10 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 [address] [id number], [place] [address]686[address] Apr, Moderate major depression F32.1 [facility] [address] [id number], [place] 126277026 March, Recurrent major depressive disorder, in partial remission F33.41 [facility] [address] [id number], [place] 8[address]245573 March, Recurrent major depressive disorder, in partial remission F33.[address] [facility] [address] [id number], [place] 215066[address] March, Moderate major depression F32.1 and Thrush B37.0 [facility] [address] [id number], [place] 224[address]5847 Feb, [facility] [address] [id number], [place] 620[address]356 Feb, Moderate major depression F32.1 [facility] [address] [id number], [place] 860416500 Feb, Moderate major depression F32.1 and Thrush B37.0 [facility] [address] [id number], [place] [id number] Feb, [facility] [address]100[place], [place] [address] Dec, Right acute otitis media H66.91 ; Cough R05 and Tobacco abuse Z72.0 [facility] [address] [facility] [address] [id number], [place] [address] Nov, Moderate major depression F32.1 and Acute hemorrhoid K64.9 [facility] [address] [place] [address] AV [id number], [place] [id number] Oct, Moderate major depression F32.1 ; History of asthma Z87.09 ; Tobacco use Z72.0 ; Tobacco abuse counseling Z71.6 ; Meralgia paresthetica of left side G57.12 ; Sore throat J02.9 and Strep throat J02.0 [facility] [address] [id number], [place] [id number] Oct, [facility] [address]100[place], [place] [address] Sep, Pharyngitis due to other organism J02.8 [facility] [address]005[address]100[place], [place] [address] Jan, [facility] [id number] [place] [address] Jan, Routine gynecological examination Z01.[address] [id number], [place] 93[address] Jan, Acute recurrent frontal sinusitis J01.11 and Fever and chills R50.9 [facility] [address]100[place], [place] [address] 10 Dec, 2016 Fever, unspecified fever cause R50.9 and Acute non- recurrent maxillary sinusitis J01.00 [place] [address]100[place], [place] [address] Aug, [address] [id number], [place] [id number] Apr, Strep throat J02.0 [address] [place] [id number] Apr, Conjunctivitis of right eye, unspecified conjunctivitis type H10.9 and Strep throat J02.[address] [id number], [place] [id number] Apr, Sore throat J02.9 [facility] [address]100[place], [place] [address] Oct, [facility] [address]100[place], [place] [address] Oct, [place] [id number] [place] [address] March, IMMUNIZATIONS No Known Immunizations SOCIAL HISTORY Never Assessed REASON FOR VISIT f/u PLAN OF CARE Activity Details Follow Up Next available Reason:depressed mood. VITAL SIGNS MEDICATIONS Unknown Medications RESULTS No Results PROCEDURES Procedure Date Ordered Result Body Site Psychotherapy, patient &/family, 30 minutes, established patient April 07, 2018 INSTRUCTIONS MEDICATIONS ADMINISTERED No Known Medications MEDICAL (GENERAL) HISTORY Type Description Date Medical History asthma Medical History depression ( prozac, pristiq, zoloft, celexa, wellbutrin) Medical History anxiety Medical History Chronic low back pain- missing vertebra Medical History Spina befida - close Medical History Degenerative disc disease Surgical History cholecystectomy Hospitalization History childbirth
--- OUTSIDE RECORDS SUMMARY | 2018-10-27 06:19 | XMS REPORT ---
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 Active 209630768 Problem Recurrent major depressive disorder, in partial remission F33.41 Active 98790162 ALLERGIES Substance Reaction Event Type Date Status Depo-Provera fluid retention Drug Allergy Apr, Active ENCOUNTERS Encounter Location Date Diagnosis [facility] [address]005[address]100[place], [place] [address] Jul, [facility] [address] [place] [address] Jun, Bipolar depression F31.30 and Social anxiety disorder F40.[address] [id number], [place] [id number] Jun, Hordeolum internum of right upper eyelid H00.021 [facility] [address] [id number], [place] [address] May, Bipolar depression F31.30 and Social anxiety disorder F40.10 [facility] [address] [id number], [place] [id number] Apr, 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 [id number], [place] [id number] Apr, Moderate major depression F32.[address] [facility] [address] [id number], [place] [address]38 March, Recurrent major depressive disorder, in partial remission F33.[address] [facility] [address] [id number], [place] [address]23858916 March, Recurrent major depressive disorder, in partial remission F33.[address] [facility] [address] [id number], [place] [address]97[address]604 March, Moderate major depression F32.1 and Thrush B37.0 [facility] [address] [id number], [place] [id number] Feb, [facility] [address] [id number], [place] [address] Feb, Moderate major depression F32.[address] [facility] [address] [id number], [place] 779244472 Feb, Moderate major depression F32.1 and Thrush B37.0 [facility] [address] [id number], [place] [id number] Feb, [facility] [address] [facility] [id number], [place] [address] Dec, Right acute otitis media H66.91 ; Cough R05 and Tobacco abuse Z72.0 [facility] [address] [id number], [place] [id number] Nov, Moderate major depression F32.1 and Acute hemorrhoid K64.9 [facility] [address] [id number], [place] [id number] Oct, Moderate major depression F32.1 ; History of asthma Z87.09 ; Tobacco use Z72.0 ; Tobacco abuse counseling Z71.6 ; Meralgia paresthetica of left side G57.12 ; Sore throat J02.9 and Strep throat J02.0 [facility] [address] [id number], [place] [id number] Oct, [facility] [address], [place] [address] Sep, Pharyngitis due to other organism J02.8 [facility] [address]100[place], [place] [address] 28 Jan, 2017 [facility] [id number] [place] [address] 14 Jan, 2017 Routine gynecological examination Z01.[address] [id number], [place] [address]24[address] 04 Jan, 2017 Acute recurrent frontal sinusitis J01.11 and Fever and chills R50.[address] [facility] [address], [place] [address] 10 Dec, 2016 Fever, unspecified fever cause R50.9 and Acute non- recurrent maxillary sinusitis J01.00 [address] [place], [place] [address] Aug, [address] [id number], [place] [id number] Apr, Strep throat J02.[id number] [place] [id number] Apr, Conjunctivitis of right eye, unspecified conjunctivitis type H10.9 and Strep throat J02.[address] [id number], [place] [id number] Apr, Sore throat J02.9 [address], [place] [address] Oct, [place] [address], [place] [address] Oct, [facility] [address], [place] [address] March, IMMUNIZATIONS No Known Immunizations SOCIAL HISTORY Never Assessed REASON FOR VISIT back pain, low back pain from defect---last vertebrae lumbar spine missing an area, pain rates 12- at the best and 8 at the worst---MAMADOU wilhelm PLAN OF CARE Activity Details Follow Up prn Reason: VITAL SIGNS Height 67 in 2018-05-01 Weight 243.6 lbs 2018-05-01 Temperature 98.3 degrees Fahrenheit 2018-05-01 Heart Rate 83 bpm 2018-05-01 Respiratory Rate 16 2018-05-01 BMI 38.15 kg/m2 2018-05-01 Blood pressure systolic 132 mmHg 2018-05-01 Blood pressure diastolic 89 mmHg 2018-05-01 MEDICATIONS Medication Instructions Dosage Frequency Start Date End Date Duration Status Pristiq 50 mg Orally Once a day 1 tablet 24h Oct, Active ProAir HFA 108 (90 Base) MCG/ACT Inhalation every 4 hrs 2 puffs as needed 4h Active Aripiprazole 5 mg Orally Once a day 1/2 tablet 24h 13 Feb, 2018 Active RESULTS No Results PROCEDURES No Known [...]
--- OUTSIDE RECORDS SUMMARY | 2018-10-27 06:19 | XMS REPORT ---
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 Active 900343646 Problem Recurrent major depressive disorder, in partial remission F33.41 Active 29273076 ALLERGIES Substance Reaction Event Type Date Status Depo-Provera fluid retention Drug Allergy March, Active ENCOUNTERS Encounter Location Date Diagnosis [facility] [address], [place] [address] Jul, [facility] [address] [place] [address] Jun, Bipolar depression F31.30 and Social anxiety disorder F40.[address] [id number][place] [id number] Jun, Hordeolum internum of right upper eyelid H00.021 [facility] [id number], [place] [address] May, Bipolar depression F31.30 and Social anxiety disorder F40.10 [facility] [address] [id number], [place] [id number] Apr, 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 [id number], [place] [id number] Apr, Moderate major depression F32.[address] [facility] [address] [id number], [place] [id number] March, Recurrent major depressive disorder, in partial remission F33.[address] [facility] [address] [id number], [place] [id number] March, Recurrent major depressive disorder, in partial remission F33.[address] [facility] [address] [id number], [place] [id number] March, Moderate major depression F32.1 and Thrush B37.0 [facility] [address] [id number], [place] [id number] Feb, [facility] [address] [id number], [place] [id number] Feb, Moderate major depression F32.[address] [facility] [address] [id number], [place] [id number] Feb, Moderate major depression F32.1 and Thrush B37.0 [facility] [address] [id number], [place] [id number] Feb, [facility] [address] [facility] [id number][place] [address] Dec, Right acute otitis media H66.91 ; Cough R05 and Tobacco abuse Z72.0 [facility] [address] [id number], [place] [id number] Nov, Moderate major depression F32.1 and Acute hemorrhoid K64.9 [facility] [address] [id number], [place] [id number] Oct, Moderate major depression F32.1 ; History of asthma Z87.09 ; Tobacco use Z72.0 ; Tobacco abuse counseling Z71.6 ; Meralgia paresthetica of left side G57.12 ; Sore throat J02.9 and Strep throat J02.0 [facility] [address] [id number], [place] [id number] Oct, [facility] [address], [place] [address] Sep, Pharyngitis due to other organism J02.8 [facility] [address], [place] [address] 28 Jan, 2017 [facility] [id number] [place] [address] 14 Jan, 2017 Routine gynecological examination Z01.[address] [id number], [place] [id number] 04 Jan, 2017 Acute recurrent frontal sinusitis J01.11 and Fever and chills R50.9 [facility] [address], [place] [address] 10 Dec, 2016 Fever, unspecified fever cause R50.9 and Acute non- recurrent maxillary sinusitis J01.00 [place] [address], [place] [address] Aug, [address] [id number], [place] [id number] Apr, Strep throat J02.[address] [id number], [place] [id number] Apr, Conjunctivitis of right eye, unspecified conjunctivitis type H10.9 and Strep throat J02.[address] [id number], [place] [id number] Apr, Sore throat J02.9 [place] [address], [place] [address] Oct, [place] [address], [place] [address] Oct, [facility] [address], [place] [address] March, IMMUNIZATIONS No Known Immunizations SOCIAL HISTORY Never Assessed REASON FOR VISIT Depression check up, doing better after going to [facility] [place], still has some nausea, Jamel working well with Renzo[employer]---MAMADOU wilhelm PLAN OF CARE Activity Details Follow Up 1 Year, prn Reason: VITAL SIGNS Height 66 in 2018-03-20 Weight 238.8 lbs 2018-03-20 Temperature 97.9 degrees Fahrenheit 2018-03-20 Heart Rate 102 bpm 2018-03-20 Respiratory Rate 18 2018-03-20 BMI 38.54 kg/m2 2018-03-20 Blood pressure systolic 130 mmHg 2018-03-20 Blood pressure diastolic 68 mmHg 2018-03-20 MEDICATIONS Medication Instructions Dosage Frequency Start Date End Date Duration Status Pristiq 50 mg Orally Once a day 1 tablet 24h Oct, Active Diflucan 150 MG Orally take today and repeat in 3 days 1 tablet March, Active ProAir HFA 108 (90 Base) MCG/ACT Inhalation every 4 hrs 2 puffs as needed 4h Active Nystatin 360859 UNIT/ML Mouth/Throat Four times a day 4 ml 6h Feb, 14 days Active Aripiprazole 5 mg Orally every other day 1 tablet Feb, 90 days Active RESULTS No Results PROCEDURES No Known [...]
--- OUTSIDE RECORDS SUMMARY | 2018-10-27 06:19 | XMS REPORT ---
Author Author FELIPE ZHANG [facility] Address [address] [place] [address] Care Team Providers Care Coat Joiner Lockstitch Name Role Phone LEATHA FELIPE Unavailable PROBLEMS Type Condition ICD9-CM Code SQS72-UZ Code Onset Dates Condition Status SNOMED Code Problem Strep throat J02.0 Active 72297247 Problem Bipolar depression F31.30 Active 35569998 Problem Social anxiety disorder F40.10 Active 52928042 Problem Moderate major depression F32.1 Active 580808 Problem Meralgia paresthetica of left side G57.12 Active 12460378 Problem 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 Active 168855236 Problem Recurrent major depressive disorder, in partial remission F33.41 Active 45974740 ALLERGIES Substance Reaction Event Type Date Status Depo-Provera fluid retention Drug Allergy May, Active Abilify GI distress Drug Allergy May, Active ENCOUNTERS Encounter Location Date Diagnosis [facility] [address] [place] [address] Jul, [facility] [address] [place] [address] Jun, Bipolar depression F31.30 [facility] [id number] [place] [address] Jun, Bipolar depression F31.30 and Social anxiety disorder F40.[address] [id number][place] [id number] Jun, Hordeolum internum of right upper eyelid H00.021 [facility] [address] [place] [address] May, Bipolar depression F31.30 and Social anxiety disorder F40.10 [facility] [address] [id number], [place] [id number] Apr, 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 [facility] [address] [id number], [place] [id number] Apr, Moderate major depression F32.[address] [facility] [address] [id number], [place] [id number] March, Recurrent major depressive disorder, in partial remission F33.[address] [facility] [address] [id number], [place] [id number] March, Recurrent major depressive disorder, in partial remission F33.[address] [facility] [address] [id number], [place] [id number] March, Moderate major depression F32.1 and Thrush B37.0 [facility] [address] [id number], [place] [id number] Feb, [facility] [address] [id number], [place] [id number] Feb, Moderate major depression F32.1 [facility] [address] [id number], [place] [id number] Feb, Moderate major depression F32.1 and Thrush B37.0 [facility] [address] [id number], [place] [id number] Feb, [facility] [address] [facility] [id number], [place] [address] Dec, Right acute otitis media H66.91 ; Cough R05 and Tobacco abuse Z72.0 [facility] [address] [id number], [place] [id number] Nov, Moderate major depression F32.1 and Acute hemorrhoid K64.9 [facility] [address] [id number], [place] [id number] Oct, Moderate major depression F32.1 ; History of asthma Z87.09 ; Tobacco use Z72.0 ; Tobacco abuse counseling Z71.6 ; Meralgia paresthetica of left side G57.12 ; Sore throat J02.9 and Strep throat J02.0 [address] [address] Oct, [facility] [address] [place] [address] Sep, Pharyngitis due to other organism J02.8 [facility] [id number] [place] [address] Jan, [place] [address] [place] [address] 14 Jan, 2017 Routine gynecological examination Z01.419 [address] [place] [id number] Jan, Acute recurrent frontal sinusitis J01.11 and Fever and chills R50.9 [facility] [id number] [place] [address] 10 Dec, 2016 Fever, unspecified fever cause R50.9 and Acute non- recurrent maxillary sinusitis J01.00 [place] [address] [place] [address] Aug, [address] [place] [id number] Apr, Strep throat J02.[address] [place] [id number] Apr, Conjunctivitis of right eye, unspecified conjunctivitis type H10.9 and Strep throat J02.[address] [place] [id number] Apr, Sore throat J02.9 [facility] [address] [place] [address] Oct, [facility] [id number] [place] [address] Oct, [facility] [address] [facility] [id number] [place] [address] March, IMMUNIZATIONS No Known Immunizations SOCIAL HISTORY Never Assessed REASON FOR VISIT BH intake WB-MA PLAN OF CARE Activity Details Follow Up 4 Weeks Reason: VITAL SIGNS Height 67 in 2018-05-19 Weight 238 lbs 2018-05-19 Heart Rate 84 bpm 2018-05-19 Respiratory Rate 18 2018-05-19 BMI 37.27 kg/m2 2018-05-19 Blood pressure systolic 128 mmHg 2018-05-19 Blood pressure diastolic 80 mmHg 2018-05-19 MEDICATIONS Medication Instructions Dosage Frequency Start Date End Date Duration Status Pristiq 50 mg Orally Once a day 1 tablet 24h Oct, Active Lamictal 25 MG Orally for 2 weeks. On 06/02 take 2 tablets at bedtime and continue 1 tablets May, 30 day(s) Active ProAir HFA 108 (90 Base) [...]
--- OUTSIDE RECORDS SUMMARY | 2018-10-27 06:19 | XMS REPORT ---
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 Active 936681827 Problem Recurrent major depressive disorder, in partial remission F33.41 Active 16107340 ALLERGIES Substance Reaction Event Type Date Status Depo-Provera fluid retention Drug Allergy Apr, Active ENCOUNTERS Encounter Location Date Diagnosis [facility] [address], [place] [address] Jul, [facility] [address] [place] [address] Jun, Bipolar depression F31.30 and Social anxiety disorder F40.[address] [id number], [place] [id number] Jun, Hordeolum internum of right upper eyelid H00.021 [facility] [id number], [place] [address] May, Bipolar depression F31.30 and Social anxiety disorder F40.10 [facility] [address] [id number], [place] [id number] Apr, 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 [id number], [place] [id number] Apr, Moderate major depression F32.[address] [facility] [address] [id number], [place] [id number] March, Recurrent major depressive disorder, in partial remission F33.[address] [facility] [address] [id number], [place] [id number] March, Recurrent major depressive disorder, in partial remission F33.[address] [facility] [address] [id number], [place] [id number] March, Moderate major depression F32.1 and Thrush B37.0 [facility] [id number], [place] [id number] Feb, [facility] [address] [id number], [place] [id number] Feb, Moderate major depression F32.[address] [facility] [address] [id number], [place] [id number] Feb, Moderate major depression F32.1 and Thrush B37.0 [facility] [address] [id number], [place] [id number] Feb, [facility] [address] [facility] [id number][place] [address] Dec, Right acute otitis media H66.91 ; Cough R05 and Tobacco abuse Z72.0 [facility] [id number], [place] [id number] Nov, Moderate major depression F32.1 and Acute hemorrhoid K64.9 [facility] [id number], [place] [id number] Oct, Moderate major depression F32.1 ; History of asthma Z87.09 ; Tobacco use Z72.0 ; Tobacco abuse counseling Z71.6 ; Meralgia paresthetica of left side G57.12 ; Sore throat J02.9 and Strep throat J02.0 [facility] [id number], [place] [id number] Oct, [facility] [address], [place] [address] Sep, Pharyngitis due to other organism J02.8 [facility] [address], [place] [address] 28 Jan, 2017 [facility] [id number] [place] [address] 14 Jan, 2017 Routine gynecological examination Z01.[address] [id number], [place] [id number] 04 Jan, 2017 Acute recurrent frontal sinusitis J01.11 and Fever and chills R50.9 [facility] [address], [place] [address] 10 Dec, 2016 Fever, unspecified fever cause R50.9 and Acute non- recurrent maxillary sinusitis J01.00 [place] [address], [place] [address] Aug, [address] [id number], [place] [id number] Apr, Strep throat J02.[id number] [place] [id number] Apr, Conjunctivitis of right eye, unspecified conjunctivitis type H10.9 and Strep throat J02.[address] [id number], [place] [id number] Apr, Sore throat J02.9 [place] [address], [place] [address] Oct, [place] [address], [place] [address] Oct, [facility] [address], [place] [address] March, IMMUNIZATIONS No Known Immunizations SOCIAL HISTORY Never Assessed REASON FOR VISIT Depression follow up, doing better but still not great---melonie RN PLAN OF CARE Activity Details Follow Up prn Reason: VITAL SIGNS Height 67 in 2018-04-28 Weight 244.3 lbs 2018-04-28 Temperature 98.1 degrees Fahrenheit 2018-04-28 Heart Rate 84 bpm 2018-04-28 Respiratory Rate 16 2018-04-28 BMI 38.26 kg/m2 2018-04-28 Blood pressure systolic 123 mmHg 2018-04-28 Blood pressure diastolic 80 mmHg 2018-04-28 MEDICATIONS Medication Instructions Dosage Frequency Start Date End Date Duration Status Aripiprazole 5 mg Orally Once a day 1/2 tablet 24h 13 Feb, 2018 Active ProAir HFA 108 (90 Base) MCG/ACT [...]
--- OUTSIDE RECORDS SUMMARY | 2018-10-27 06:20 | XMS REPORT ---
Author Author AUGUSTINE VIDAL Organization [facility] Address [address] [place] [address] Care Team Providers Care Tool And Die Designer Name Role Phone AUGUSTINE VIDAL Unavailable PROBLEMS Type Condition ICD9-CM Code GLJ66-FG Code Onset Dates Condition Status SNOMED Code Problem Strep throat J02.0 Active 47998491 ALLERGIES Substance Reaction Event Type Date Status Depo-Provera fluid retention Drug Allergy Jan, Active SOCIAL HISTORY Never Assessed PLAN OF CARE Activity Details Follow Up 2 - 3 Days Reason:if s/s not improving VITAL SIGNS Height 66 in 2017-01-18 Weight 244.3 lbs 2017-01-18 Temperature 97.9 degrees Fahrenheit 2017-01-18 Heart Rate 98 bpm 2017-01-18 Respiratory Rate 20 2017-01-18 BMI 39.43 kg/m2 2017-01-18 Blood pressure systolic 118 mmHg 2017-01-18 Blood pressure diastolic 68 mmHg 2017-01-18 MEDICATIONS Medication Instructions Dosage Frequency Start Date End Date Duration Status Amoxicillin-Pot Clavulanate 875-125 MG Orally every 12 hrs 1 tablet 12h Jan, Jan, 10 day(s) Active Pseudoephedrine HCl 60 mg Orally every 6 hrs for sinus congestion 1 tablet as needed Jan, 14 days Active RESULTS Name Result Date Reference Range INFLUENZA A & B (IN HOUSE) 2017-01-18 INFLUENZA A NEGATIVE INFLUENZA B NEGATIVE Control POSITIVE Lot # [id number] Exp date 10/14/19 STREP A (IN HOUSE) 2017-01-18 STREP A POSITIVE Control POSITIVE Lot # [id number] Exp date 10/16/18 PROCEDURES Procedure Date Ordered Result Body Site STREP A ASSAY W/OPTIC January 18, 2017 INFLUENZA ASSAY W/OPTIC January 18, 2017 IMMUNIZATIONS No Known Immunizations MEDICAL (GENERAL) HISTORY Type Description Date Surgical History cholecystectomy Hospitalization History childbirth
--- OUTSIDE RECORDS SUMMARY | 2018-10-27 06:20 | XMS REPORT | Continuity of Care Document ---
Author Author [facility] Organization [facility] Address Unknown Phone Unavailable Care Team Providers Care Medical Service Representative Name Role Phone RAAD LOZANO MD PP Insurance Providers Payer Name Policy Number Subscriber Name Relationship Valerio Garcia [facility] [id number] Ti Garcia 02 Pranav Joey Sunflow[employer] [id number] Tenzin Garcia 01 Self / Same As Patient Advance Directives Directive Response Recorded Date Advance Directives N 08/21/13 8:06pm Health Care Power of Control Panel Builder N 08/21/13 8:06pm Organ Donor Y 08/21/13 8:06pm Problems No Known Problems or Medical conditions. Family History History Response Recorded Date/Time Hx Family Cancer Y maternal gpa,gma and paternal gma 06/10/10 8:04am Hx Family Lung Cancer Y 06/10/10 8:04am Hx Family Cardiac Disorders Y 06/10/10 8: 04am Hx Family Hypertension Y maternal gma 10/09 8:04am Social History History Response Recorded Date/Time Alcohol Use Denies Use 04/04/13 12:08pm Recreational Drug Use N 04/04/13 12:08pm Allergies, Adverse Reactions, Alerts Allergen Type Severity Reaction Last Updated DEPO PROVERA Allergy Unknown 01/20/11 EES Allergy Unknown 01/20/11 Medications Medication Dose Units Route Sig Qty Days Cephalexin Monohydrate (Cephalexin) 1 Each PO TID Vit #108/Iron/Fa ( One Tablet) 1 Each PO DAILY Progesterone 50 Mg IM Albuterol (Ventolin) 1 Inh PO Q4 Promethazine HCl (Phenergan 25 Mg) 1 Tab PO QID PRN 14 Progesterone,Micronized (Progesterone) 50 Mg [place] DAILY Naproxen (Naprosyn) 1 Each PO BID PRN 20 Hydrocodone Bit/Acetaminophen (Hydrocodon-Acetaminophen 5-325) 1 - 2 Each PO Q6H PRN 20 Cyclobenzaprine HCl (Cyclobenzaprine Hcl) 1 Each PO Q8HR PRN 20 Response Recorded Date/Time Status not known Unknown Results Test Date Result Interp. Ref. Range Alanine Aminotransferase (ALT/SGPT) May 21, 2010 5:05pm 25 U/L L 30-65 Albumin May 21, 2010 5:05pm 3.0 G/DL L 3.4-5.0 Alkaline Phosphatase May 21, 2010 5:05pm 118 U/L N 50-136 Aspartate Amino Transf (AST/SGOT) May 21, 2010 5:05pm 12 U/L L 15-37 Atypical Lymphocytes March 12, 2010 11:15am 1 % - BUN/Creatinine Ratio April 04, 2013 12:25pm 13 - Band Neutrophils June 12, 2010 5:52am 5 % - Basophils # (Auto) April 04, 2013 12:25pm 0.0 10^3/uL N 0.0-0.1 Basophils % (Manual) May 21, 2010 5:05pm 0 % - Basophils (%) (Auto) April 04, 2013 12:25pm 0 % N 0-10 Blood Urea Nitrogen April 04, 2013 12:25pm 8 MG/DL N 7-18 Calcium Level April 04, 2013 12:25pm 8.6 MG/DL N 8.5-10.1 Carbon Dioxide Level April 04, 2013 12:25pm 25 MMOL/L N 21-32 Chloride Level April 04, 2013 12:25pm 102 MMOL/L N 101-110 Creatinine April 04, 2013 12:25pm 0.6 MG/ DL N 0.6-1.3 Eosinophils # (Auto) April 04, 2013 12:25pm 0.1 10^3/uL N 0.0-0.3 Eosinophils % (Manual) June 12, 2010 5:52am 5 % - Eosinophils (%) (Auto) April 04, 2013 12:25pm 1 % N 0-10 Glucose Level April 04, 2013 12:25pm 101 MG/DL N 74-106 Hematocrit April 04, 2013 12:25pm 40 % N 35-52 Hemoglobin April 04, 2013 12:25pm 14.1 G/ DL N 11.5-16.0 Human Chorionic Gonadotropin, Quant April 04, 2013 12:25pm 34064 MIU/ML H -6 Lymphocytes # (Auto) April 04, 2013 12:25pm 2.4 X 10^3 N 1.0-4.0 Lymphocytes % (Manual) June 12, 2010 5:52am 35 % - Lymphocytes (%) (Auto) April 04, 2013 12:25pm 19 % N 12-44 Mean Corpuscular Hemoglobin April 04, 2013 12:25pm 30 PG N 25-34 Mean Corpuscular Hemoglobin Concent April 04, 2013 12:25pm 35 G/DL N 32-36 Mean Corpuscular Volume April 04, 2013 12:25pm 86 FL N 80-99 Mean Platelet Volume April 04, 2013 12:25pm 10.3 FL N 7.4-10.4 Monocytes # (Auto) April 04, 2013 12:25pm 1.2 X 10^3 H 0.0-1.0 Monocytes % (Manual) June 12, 2010 5:52am 4 % - Monocytes (%) (Auto) April 04, 2013 12:25pm 9 % N 0-12 Neutrophils # (Auto) April 04, 2013 12:25pm 9.3 X 10^3 H 1.8-7.8 Neutrophils % (Manual) June 12, 2010 5:52am 51 % - Neutrophils (%) (Auto) April 04, 2013 12:25pm 71 % N 42-75 Platelet Count April 04, 2013 12:25pm 274 10^3/uL N 130-400 Potassium Level April 04, 2013 12:25pm 4.7 MMOL/L N 3.6-5.0 Red Blood Count April 04, 2013 12:25pm 4.67 10^6/uL N 4.35-5.85 Red Cell Distribution Width April 04, 2013 12:25pm 13.3 % N 10.0-14.5 Sodium Level April 04, 2013 12:25pm 137 MMOL/L N 135-145 Total Bilirubin May 21, 2010 5:05pm 0.3 MG/DL N 0.0-1.0 Total Protein May 21, 2010 5:05pm 6.9 G /DL N 6.4-8.2 Urine Amorphous Sediment March 12, 2010 11:00am MOD JIMMY URATES H - Urine Bacteria May 21, 2010 4:40pm NEGATIVE - Urine Bilirubin May 21, 2010 4:40pm NEGATIVE - Urine Casts May 21, 2010 4:40pm NONE - Urine Clarity May 21, 2010 4:40pm SLIGHTLY CLOUDY - Urine Color May 21, 2010 4:40pm YELLOW - Urine Crystals May 21, 2010 4:40pm NONE - Urine Culture Indicated May 21, 2010 4:40pm NO - Urine Glucose (UA) May 21, 2010 4:40pm NEGATIVE - Urine Ketones May 21, 2010 4:40pm NEGATIVE - Urine Leukocyte Esterase May 21, 2010 4:40pm NEGATIVE - Urine Mucus May 21, 2010 4:40pm MODERATE H - Urine Nitrate September 04, 2007 5:50pm Negative - Urine Nitrite May 21, 2010 4:40pm NEGATIVE - Urine Protein May 21, 2010 4:40pm NEGATIVE - Urine RBC May 21, 2010 4:40pm 0-2 /HPF - Urine Specific [place] May 21, 2010 4:40pm 1.020 - Urine Squamous Epithelial Cells May 21, 2010 4:40pm 5-10 - Urine Urobilinogen May 21, 2010 4:40pm NORMAL MG/DL - Urine WBC May 21, 2010 4:40pm 0-2 /HPF - Urine pH May 21, 2010 4:40pm 6.0 - White Blood Count April 04, 2013 12:25pm 13.1 10^3/uL H 4.3-11.0 Amniotic Fluid Ferning Test June 07, 2010 6:00pm NEGATIVE - Glucometer May 30, 2010 4:21pm 103 MG/ DL N 70-110 Lab Scanned Report November 03, 2011 3:15pm LAB Reports [id number] - Estimat Glomerular Filtration Rate April 04, 2013 12:25pm > 60 - Blood Morphology Comment June 12, 2010 5:52am NORMAL - Urine RBC (Auto) May 21, 2010 4:40pm NEGATIVE - Procedures Procedure Code Date EPISIOTOMY 73.6 06/10/10 Urine Culture 05/21/10 Encounters Encounter Location Date/Time Departed Emergency Room [facility] 11:59am Discharged Inpatient [facility] 8:30am
--- OUTSIDE RECORDS SUMMARY | 2018-10-27 06:20 | XMS REPORT ---
Author Author ANGELA TELLO [facility] Address [address] [place] [address] Care Team Providers Care Termite Control Representative Name Role Phone ANGELA TELLO Unavailable PROBLEMS Type Condition ICD9-CM Code YCH13-RC Code Onset Dates Condition Status SNOMED Code Problem 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 Active 766623166 Problem Recurrent major depressive disorder, in partial remission F33.41 Active 18033322 Problem Strep throat J02.0 Active 47343934 Problem Moderate major depression F32.1 Active 009947 Problem Meralgia paresthetica of left side G57.12 Active 52441022 ALLERGIES Substance Reaction Event Type Date Status Depo-Provera fluid retention Drug Allergy Nov, Active ENCOUNTERS Encounter Location Date Diagnosis [facility] [address] [facility] [id number] [place] [phone] May, [facility] [address] [id number] [id number] Apr, 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 [facility] [address] [id number] [id number] Apr, Moderate major depression F32.1 [facility] [address] [id number][place] [id number] March, Recurrent major depressive disorder, in partial remission F33.41 [facility] [address] [id number], [place] [id number] March, Recurrent major depressive disorder, in partial remission F33.41 [facility] [address] [id number][place] [id number] March, Moderate major depression F32.1 and Thrush B37.0 [facility] [address] [id number] [id number] Feb, [address] [id number] [id number] Feb, Moderate major depression F32.[address] [id number][place] [id number] Feb, Moderate major depression F32.1 and Thrush B37.[id number] [place] [id number] Feb, [facility] [address], [place] [address] Dec, Right acute otitis media H66.91 ; Cough R05 and Tobacco abuse Z72.[address] [id number][place] [id number] Nov, Moderate major depression F32.1 and Acute hemorrhoid K64.[address] [id number], [place] [id number] Oct, Moderate major depression F32.1 ; History of asthma Z87.09 ; Tobacco use Z72.0 ; Tobacco abuse counseling Z71.6 ; Meralgia paresthetica of left side G57.12 ; Sore throat J02.9 and Strep throat J02.[address] [id number], [place] [id number] Oct, [facility] [address], [place] [address] Sep, Pharyngitis due to other organism J02.8 [facility] [address] [place] [phone] Jan, [facility] [address] [place] [id number] [place] [phone] Jan, Routine gynecological examination Z01.[address] [id number][place] [id number] Jan, Acute recurrent frontal sinusitis J01.11 and Fever and chills R50.9 [facility] [address], [place] [address] 10 Dec, 2016 Fever, unspecified fever cause R50.9 and Acute non- recurrent maxillary sinusitis J01.00 [facility] [address], [place] [address] Aug, [facility] [place] [address] [facility] [address] [id number] [id number] Apr, Strep throat J02.[address] [place] [place] [id number] [place] [id number] Apr, Conjunctivitis of right eye, unspecified conjunctivitis type H10.9 and Strep throat J02.0 [address] [id number] Apr, Sore throat J02.9 [facility] [address] [place] [phone] Oct, [facility] [id number] [place] [phone] Oct, [facility] [id number] [place] [phone] March, IMMUNIZATIONS No Known Immunizations SOCIAL HISTORY Never Assessed REASON FOR VISIT Depression f/u- jparkerRN PLAN OF CARE Activity Details Follow Up prn, 1 Year Reason: VITAL SIGNS Height 66 in 2017-12-09 Weight 244 lbs 2017-12-09 Temperature 98.3 degrees Fahrenheit 2017-12-09 Heart Rate 90 bpm 2017-12-09 Respiratory Rate 16 2017-12-09 BMI 39.38 kg/m2 2017-12-09 Blood pressure systolic 128 mmHg 2017-12-09 Blood pressure diastolic 78 mmHg 2017-12-09 MEDICATIONS Medication Instructions Dosage Frequency Start Date End Date Duration Status ProAir HFA 108 (90 Base) MCG/ACT Inhalation every 4 hrs 2 puffs as needed 4h Active Afrin 12 Hour 0.05 % Nasally Twice a day 2 drops as needed 12h Not -Taking Pristiq 50 mg Orally Once a day 1 tablet 24h Oct, Active Anusol-HC 25 MG Rectal Three times a day 1 suppository 8h Nov, Active Motrin Not-Taking Pseudoephedrine HCl 60 mg Orally every 6 hrs for sinus congestion 1 tablet as needed Jan, 14 days Not-Taking RESULTS No Results PROCEDURES No Known procedures INSTRUCTIONS MEDICATIONS ADMINISTERED No Known Medications MEDICAL (GENERAL) HISTORY Type Description Date Medical History asthma Medical History depression ( prozac, pristiq, zoloft, celexa, wellbutrin) Medical History anxiety Medical History Chronic low back pain- missing vertebra Surgical History cholecystectomy Hospitalization History childbirth
--- OUTSIDE RECORDS SUMMARY | 2018-10-27 06:20 | XMS REPORT | Continuity of Care Document ---
Author Author [facility] Organization [facility] Address Unknown Phone Unavailable Care Team Providers Care Fish Checker Name Role Phone MELISSA FRANCO MD PP Insurance Providers Payer Name Policy Number Subscriber Name Relationship Valerio Garcia [facility] [id number] Ti Garcia 02 [facility] [id number] Tenzin Garcia 01 Self / Same As Patient Advance Directives Directive Response Recorded Date Advance Directives N 04/04/13 12:08pm Problems No Known Problems or Medical conditions. Family History History Response Recorded Date/Time Hx Family Cancer Y maternal gpa,gma and paternal gma 06/10/10 8:04am Hx Family Lung Cancer Y 06/10/10 8:04am Social History History Response Recorded Date/Time Alcohol Use Denies Use 04/04/13 12:08pm Recreational Drug Use N 04/04/13 12:08pm Allergies, Adverse Reactions, Alerts Allergen Type Severity Reaction Last Updated DEPO PROVERA Allergy Unknown 01/20/11 EES Allergy Unknown 01/20/11 Medications Medication Dose Units Route Sig Qty Days Promethazine HCl (Phenergan 25 Mg) 1 Tab PO QID PRN 14 Progesterone,Micronized (Progesterone) 50 Mg [place] DAILY Progesterone 50 Mg IM Albuterol (Ventolin) 1 Inh PO Q4 Naproxen (Naprosyn) 1 Each PO BID PRN 20 Hydrocodone Bit/Acetaminophen (Hydrocodon-Acetaminophen 5-325) 1 - 2 Each PO Q6H PRN 20 Cyclobenzaprine HCl (Cyclobenzaprine Hcl) 1 Each PO Q8HR PRN 20 Response Recorded Date/Time Status not known Unknown Results No Known Relevant Diagnostic Tests, Laboratory Data and/or Discharge Summary. Procedures Procedure Code Date EPISIOTOMY 73.6 06/10/10 Encounters Encounter Location Date/Time Departed Emergency Room [facility] 11:59am Discharged Inpatient [facility] 8:30am
--- OUTSIDE RECORDS SUMMARY | 2018-10-27 06:20 | XMS REPORT ---
Author Author [facility]O [facility] Address [address] [place] [address] Care Team Providers Care Pricing Manager Name Role Phone ANGELA TELLO Unavailable PROBLEMS Type Condition ICD9-CM Code QJC07-XE Code Onset Dates Condition Status SNOMED Code Problem Recurrent major depressive disorder, in partial remission F33.41 Active 94499597 Problem Moderate major depression F32.1 Active 795786 Problem Meralgia paresthetica of left side G57.12 Active 38053213 Problem Strep throat J02.0 Active 93178117 ALLERGIES Substance Reaction Event Type Date Status Depo-Provera fluid retention Drug Allergy Oct, Active ENCOUNTERS Encounter Location Date [facility] [id number] [id number] Apr, [facility] [address] [address] [id number][place] [id number] March, Recurrent major depressive disorder, in partial remission F33.[address] [id number][place] [id number] March, Recurrent major depressive disorder, in partial remission F33.[address] [facility] [address] [address] [id number][place] [id number] March, Moderate major depression F32.1 and Thrush B37.[address] [facility] [address] [id number], [place] [id number] Feb, [facility] [address] [id number], [place] [id number] Feb, Moderate major depression F32.[address] [facility] [address] [address] [id number], [place] [id number] Feb, Moderate major depression F32.1 and Thrush B37.[address] [id number][place] [id number] Feb, [facility] [address]65[address], [place] [address] Dec, 2017 Right acute otitis media H66.91 ; Cough R05 and Tobacco abuse Z72.[address] [id number], [place] [id number] Nov, Moderate major depression F32.1 and Acute hemorrhoid K64.[id number] [place] [id number] Oct, Moderate major depression F32.1 ; History of asthma Z87.09 ; Tobacco use Z72.0 ; Tobacco abuse counseling Z71.6 ; Meralgia paresthetica of left side G57.12 ; Sore throat J02.9 and Strep throat J02.[address] [id number], [place] [id number] 12 Oct, 2017 [facility] [id number] [place] [phone] Sep, Pharyngitis due to other organism J02.8 [place] [id number] [place] [address] Jan, [facility] [id number] [place] [address] 14 Jan, 2017 Routine gynecological examination Z01.[address] [id number], [place] [id number] 04 Jan, 2017 Acute recurrent frontal sinusitis J01.11 and Fever and chills R50.9 [facility] [id number] [place] [phone] 10 Dec, 2016 Fever, unspecified fever cause R50.9 and Acute non- recurrent maxillary sinusitis J01.00 [place] [id number] [place] [address] Aug, [facility] [address] [facility] [address] [id number], [place] [id number] Apr, Strep throat J02.0 [place] [address] [facility] [address] [id number], [place] [id number] Apr, Conjunctivitis of right eye, unspecified conjunctivitis type H10.9 and Strep throat J02.[address] [id number], [place] [id number] Apr, Sore throat J02.9 [place] [address] [facility] [id number], [place] [address] Oct, [place] [address] [place] [id number], [place] [address] Oct, [place] [address] [facility] [id number], [place] [address] March, IMMUNIZATIONS No Known Immunizations SOCIAL HISTORY Never Assessed REASON FOR VISIT [facility] Updated-ADaviedRN PLAN OF CARE VITAL SIGNS MEDICATIONS Medication Instructions Dosage Frequency Start Date End Date Duration Status Afrin 12 Hour 0.05 % Nasally Twice a day 2 drops as needed 12h Not -Taking Motrin Not-Taking ProAir HFA 108 (90 Base) MCG/ACT Inhalation every 4 hrs 2 puffs as needed 4h Active Pseudoephedrine HCl 60 mg Orally every 6 hrs for sinus congestion 1 tablet as needed Jan, 14 days Not-Taking RESULTS No Results PROCEDURES No Known procedures INSTRUCTIONS MEDICATIONS ADMINISTERED No Known Medications MEDICAL (GENERAL) HISTORY Type Description Date Medical History asthma Medical History depression ( prozac, pristiq, zoloft, celexa, wellbutrin) Medical History anxiety Surgical History cholecystectomy Hospitalization History childbirth
--- OUTSIDE RECORDS SUMMARY | 2018-10-27 06:20 | XMS REPORT ---
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 Active 729949770 Problem Recurrent major depressive disorder, in partial remission F33.41 Active 90158343 ALLERGIES Substance Reaction Event Type Date Status Depo-Provera fluid retention Drug Allergy Feb, Active ENCOUNTERS Encounter Location Date Diagnosis [facility] [address] [phone] Jun, [facility] [address] [place] [id number] [address] May, Bipolar depression F31.30 and Social anxiety disorder F40.10 [facility] [address] [id number], [place] [id number] Apr, 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 [facility] [address] [id number], [place] [id number] Apr, Moderate major depression F32.1 [facility] [address] [facility] [address] [id number], [place] [id number] March, Recurrent major depressive disorder, in partial remission F33.41 [facility] [address] [id number], [place] [id number] March, Recurrent major depressive disorder, in partial remission F33.41 [facility] [address] [id number], [place] [id number] March, Moderate major depression F32.1 and Thrush B37.0 [facility] [address] [id number], [place] [id number] Feb, [facility] [address] [id number], [place] [id number] Feb, Moderate major depression F32.1 [facility] [address] [id number], [place] [id number] Feb, Moderate major depression F32.1 and Thrush B37.0 [facility] [address] [id number], [place] [id number] Feb, [facility] [address] [place] [address] Dec, Right acute otitis media H66.91 ; Cough R05 and Tobacco abuse Z72.0 [facility] [address] [facility] [address] [id number], [place] [id number] Nov, Moderate major depression F32.1 and Acute hemorrhoid K64.9 [facility] [address] [facility] [address] [id number], [place] [id number] Oct, Moderate major depression F32.1 ; History of asthma Z87.09 ; Tobacco use Z72.0 ; Tobacco abuse counseling Z71.6 ; Meralgia paresthetica of left side G57.12 ; Sore throat J02.9 and Strep throat J02.[address] [facility] [address] [id number], [place] [id number] Oct, [facility] [id number] [place] [phone] Sep, Pharyngitis due to other organism J02.8 [facility] [id number] [place] [address] Jan, [facility] [address] [id number], [place] [address] 14 Jan, 2017 Routine gynecological examination Z01.[address] [facility] [address] [id number] [place] [id number] 04 Jan, 2017 Acute recurrent frontal sinusitis J01.11 and Fever and chills R50.9 [facility] [address]65[address], [place] [address] 10 Dec, 2016 Fever, unspecified fever cause R50.9 and Acute non- recurrent maxillary sinusitis J01.00 [facility] [id number] [place] [phone] Aug, [facility] [address] [id number] [place] [id number] Apr, Strep throat J02.0 [address] [place] [id number] Apr, Conjunctivitis of right eye, unspecified conjunctivitis type H10.9 and Strep throat J02.[address] [id number] [place] [id number] Apr, Sore throat J02.9 [facility] [address]100[place], [place] [address] Oct, [place] [address] [place] [address] Oct, [facility] [id number] [place] [address] March, IMMUNIZATIONS No Known Immunizations SOCIAL HISTORY Never Assessed REASON FOR VISIT Depression-c/o decreased motivation, crying, the last couple weeks. Sanjuanita [facility] PLAN OF CARE Activity Details Follow Up 4 Weeks Reason:depression VITAL SIGNS Height 66 in 2018-02-27 Weight 241.8 lbs 2018-02-27 Temperature 99.0 degrees Fahrenheit 2018-02-27 Heart Rate 94 bpm 2018-02-27 Respiratory Rate 18 2018-02-27 BMI 39.02 kg/m2 2018-02-27 Blood pressure systolic 133 mmHg 2018-02-27 Blood pressure diastolic 83 mmHg 2018-02-27 MEDICATIONS Medication Instructions Dosage Frequency Start Date End Date Duration Status Nystatin 528647 UNIT/ML Mouth/Throat Four times a day 4 ml 6h Feb, Feb, 14 days Active Pristiq 50 mg Orally Once a [...]
--- OUTSIDE RECORDS SUMMARY | 2018-10-27 06:20 | XMS REPORT ---
Author [facility] Address [address] [place] [address] Care Team Providers Care Ground Mixer Name Role Phone ANGELA TELLO Unavailable PROBLEMS Type Condition ICD9-CM Code [id number] Code Onset Dates Condition Status SNOMED Code Problem Recurrent major depressive disorder, in partial remission F33.41 Active 84644401 Problem Moderate major depression F32.1 Active 488318 Problem Meralgia paresthetica of left side G57.12 Active 00962886 Problem Strep throat J02.0 Active 51539277 ALLERGIES Substance Reaction Event Type Date Status Depo-Provera fluid retention Drug Allergy Oct, Active ENCOUNTERS Encounter Location Date Diagnosis [facility] [address] [id number] [place] [id number] Apr, [facility] [address] [id number] [place] [id number] Apr, [facility] [address] [id number] [place] [id number] March, Recurrent major depressive disorder, in partial remission F33.41 [facility] [address] [id number] [place] [id number] March, Recurrent major depressive disorder, in partial remission F33.41 [facility] [address] [id number] [place] [id number] March, Moderate major depression F32.1 and Thrush B37.0 [facility] [id number] [place] [id number] Feb, [facility] [address] [id number] [place] [id number] Feb, Moderate major depression F32.1 [facility] [address] [id number] [place] [id number] Feb, Moderate major depression F32.1 and Thrush B37.[address] [id number] [place] [id number] Feb, [facility] [address] [address] Dec, Right acute otitis media H66.91 ; Cough R05 and Tobacco abuse Z72.[address] [id number] [place] [id number] Nov, Moderate major depression F32.1 and Acute hemorrhoid K64.[address] [id number] [place] [id number] Oct, Moderate major depression F32.1 ; History of asthma Z87.09 ; Tobacco use Z72.0 ; Tobacco abuse counseling Z71.6 ; Meralgia paresthetica of left side G57.12 ; Sore throat J02.9 and Strep throat J02.[address] [id number] [place] [id number] Oct, [facility] [id number] [place] [phone] Sep, Pharyngitis due to other organism J02.8 [place] [id number] [place] [address] Jan, [facility] [id number] [place] [phone] 14 Jan, 2017 Routine gynecological examination Z01.[address] [id number] [place] [id number] 04 Jan, 2017 Acute recurrent frontal sinusitis J01.11 and Fever and chills R50.[address] [facility] [address], [place] [address] Dec, 2016 Fever, unspecified fever cause R50.9 and Acute non- recurrent maxillary sinusitis J01.00 [facility] [address], [place] [address] Aug, [facility] [facility] [address] [id number] [place] [phone] Apr, Strep throat J02.[address] [id number] [place] [id number] Apr, Conjunctivitis of right eye, unspecified conjunctivitis type H10.9 and Strep throat J02.[address] [id number] [place] [id number] Apr, Sore throat J02.9 [place] [address] [address] Oct, [place] [id number] [place] [phone] Oct, [place] [address] [address] March, IMMUNIZATIONS No Known Immunizations SOCIAL HISTORY Never Assessed REASON FOR VISIT Establish Care, - Pt is fasting. Sanjuanita WILBURN PLAN OF CARE Activity Details Follow Up 4 Weeks Reason:depression VITAL SIGNS Height 66 in 2017-10-30 Weight 246.3 lbs 2017-10-30 Temperature 98.6 degrees Fahrenheit 2017-10-30 Heart Rate 79 bpm 2017-10-30 Respiratory Rate 18 2017-10-30 BMI 39.75 kg/m2 2017-10-30 Blood pressure systolic 112 mmHg 2017-10-30 Blood pressure diastolic 72 mmHg 2017-10-30 MEDICATIONS Medication Instructions Dosage Frequency Start Date End Date Duration Status Motrin Not-Taking Pseudoephedrine HCl 60 mg Orally every 6 hrs for sinus congestion 1 tablet as needed Jan, 14 days Not-Taking ProAir HFA 108 (90 Base) MCG/ACT Inhalation every 4 hrs 2 puffs as needed 4h Active Amoxicillin 500 mg Orally every 12 hrs 2 tablet 12h Oct, Oct, 10 day(s) Active Afrin 12 Hour 0.05 % Nasally Twice a day 2 drops as needed 12h Not -Taking Pristiq 50 mg Orally Once a day 1 tablet 24h Oct, Active RESULTS No Results PROCEDURES Procedure Date Ordered Result Body Site STREP A ASSAY W/OPTIC Oct 30, 2017 COMPLETE CBC W/AUTO DIFF WBC Oct 30, 2017 COMPREHEN METABOLIC PANEL Oct 30, 2017 LIPID PANEL Oct 30, 2017 VENIPUNCT, ROUTINE* Oct 30, 2017 ASSAY THYROID STIM HORMONE Oct 30, 2017 INSTRUCTIONS MEDICATIONS ADMINISTERED No Known Medications MEDICAL (GENERAL) HISTORY Type Description Date Medical History asthma Medical History depression ( prozac, pristiq, zoloft, celexa, wellbutrin) Medical History anxiety Surgical History cholecystectomy Hospitalization History childbirth
--- OUTSIDE RECORDS SUMMARY | 2018-10-27 06:20 | XMS REPORT ---
Author Author MONICA PIEDRA Organization [employer] Address Unknown Phone Unavailable Care Team Providers Care Digital Strategist Senior Manager Name Role Phone MONICA PIEDRA Unavailable Allergies No Known Allergies Problems Problem Type Condition Code Onset Dates Condition Status Problem Strep throat J02.0 Active Medications Medication Code System Code Instructions Start Date End Date Status Dosage Zithromax [facility] [place] [id number] 250 MG Orally Once a day Aug 19, 2016 Aug 24, 2016 2 tablets on the first day, then 1 tablet daily for 4 days Results No Known Results Summary Purpose [employer] Submission
--- OUTSIDE RECORDS SUMMARY | 2018-10-27 06:20 | XMS REPORT ---
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 Active 250450399 Problem Recurrent major depressive disorder, in partial remission F33.41 Active 96131711 ALLERGIES Substance Reaction Event Type Date Status Depo-Provera fluid retention Drug Allergy Dec, Active ENCOUNTERS Encounter Location Date Diagnosis [facility] [id number] [address] Jun, [facility] [id number] [address] May, Bipolar depression F31.30 and Social anxiety disorder F40.10 [facility] [address] [id number], [place] [id number] Apr, 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 [facility] [address] [id number][place] [id number] Apr, Moderate major depression F32.1 [facility] [address] [id number], [place] [id number] March, Recurrent major depressive disorder, in partial remission F33.41 [facility] [address] [id number], [place] [id number] March, Recurrent major depressive disorder, in partial remission F33.41 [facility] [address] [address] [id number], [place] [id number] March, Moderate major depression F32.1 and Thrush B37.0 [facility] [address] [id number], [place] [id number] Feb, [facility] [address] [id number], [place] [id number] Feb, Moderate major depression F32.1 [facility] [address] [id number], [place] [id number] Feb, Moderate major depression F32.1 and Thrush B37.0 [facility] [address] [id number], [place] [phone] Feb, [facility] [address] [id number] [address] Dec, Right acute otitis media H66.91 ; Cough R05 and Tobacco abuse Z72.0 [facility] [address] [facility] [address] [id number], [place] [id number] Nov, Moderate major depression F32.1 and Acute hemorrhoid K64.9 [facility] [address] [place] [address] AVE [id number], [place] [id number] Oct, Moderate major depression F32.1 ; History of asthma Z87.09 ; Tobacco use Z72.0 ; Tobacco abuse counseling Z71.6 ; Meralgia paresthetica of left side G57.12 ; Sore throat J02.9 and Strep throat J02.0 [facility] [address] [facility] [address] [id number], [place] [id number] Oct, [facility] [id number] [place] [address] Sep, Pharyngitis due to other organism J02.8 [facility] [address] [address] Jan, [facility] [address] [address] 14 Jan, 2017 Routine gynecological examination Z01.419 [facility] [address] [place] [address] [id number] [place] [id number] 04 Jan, 2017 Acute recurrent frontal sinusitis J01.11 and Fever and chills R50.9 [facility] IN [facility] [address] [place] [phone] 10 Dec, 2016 Fever, unspecified fever cause R50.9 and Acute non- recurrent maxillary sinusitis J01.00 [facility] [id number] [place] [phone] Aug, [facility] [address] [id number] [place] [id number] Apr, Strep throat J02.[address] [id number] [place] [id number] Apr, Conjunctivitis of right eye, unspecified conjunctivitis type H10.9 and Strep throat J02.0 [facility] [address] [id number][place] [id number] Apr, Sore throat J02.9 [facility] [address] [place] [address] Oct, [place] [id number] [place] [phone] Oct, [place] [id number] [place] [phone] March, IMMUNIZATIONS No Known Immunizations SOCIAL HISTORY Never Assessed REASON FOR VISIT cough/congestion Pt c/o cough and congestion along with R ear pain for about a week and a half TAMMY Williamson PLAN OF CARE Activity Details Follow Up prn Reason: VITAL SIGNS Height 66 in 2018-01-13 Weight 240.6 lbs 2018-01-13 Temperature 98.4 degrees Fahrenheit 2018-01-13 Heart Rate 90 bpm 2018-01-13 Respiratory Rate 20 2018-01-13 BMI 38.83 kg/m2 2018-01-13 Blood pressure systolic 122 mmHg 2018-01-13 Blood pressure diastolic 64 mmHg 2018-01-13 MEDICATIONS Medication Instructions Dosage Frequency Start Date End Date Duration Status Pseudoephedrine HCl 60 mg Orally every 6 hrs for sinus congestion 1 tablet as needed Jan, 14 days Not-Taking Afrin 12 Hour 0.05 % Nasally Twice a day 2 drops as needed 12h Not -Taking PredniSONE 10 MG Orally Once a day Take 4 tabs po x3 days, 3 tabs po x3 days , 2 tabs po x3 days, 1 tab po x3 days. 24h 12 days Active Augmentin 875-125 MG Orally every 12 hrs 1 tablet 12h Dec, Jan, 10 day(s) Active Motrin Not-Taking Pristiq 50 mg Orally Once a day 1 tablet 24h Oct, Active Anusol-HC 25 MG Rectal Three times a day 1 suppository 8h Nov, Active ProAir HFA 108 (90 Base) MCG/ACT [...]
--- OUTSIDE RECORDS SUMMARY | 2018-10-27 06:21 | XMS REPORT | Continuity of Care Document ---
Author Author [facility] Organization [facility] Address Unknown Phone Unavailable Allergies Active Description Code Type Severity Reaction Onset Reported/Identified Relationship to Patient Clinical Status Yes erythromycin base [id number] Drug Allergy Unknown N/A 09/20/2013 Yes medroxyprogesterone acetate [id number] Drug Allergy Unknown N/A 2012 Medications There is no data. Problems Date Dx Coded Attending Type Code Diagnosis Diagnosed By 01/20/2011 Ot 847.0 SPRAIN OF NECK 01/20/2011 Ot 850.0 CONCUSSION W/ O COMA 01/20/2011 Ot 959.01 HEAD INJURY , NOS 01/20/2011 Ot E000.8 OTHER EXTERNAL CAUSE STATUS 01/20/2011 Ot E812.0 MV COLLISION NOS-ACTIVE DIRECTORY ARCHITECT 04/04/2013 YENIFER SCHULTZ MD Ot 640.03 THREATEN ABORT-ANTEPART 04/04/2013 YENIFER SCHULTZ MD Ot 643.03 MILD HYPEREMESIS-ANTEPAR 04/04/2013 YENIFER SCHULTZ MD Ot 649.53 SPOTTING COMP , ANTEPARTUM COND 08/21/2013 RAAD LOZANO MD Ot 644.03 THRT CASEY LABOR-ANTEPART 09/20/2013 NATALIE JAIN DO Ot 623.5 NONINFECT VAG LEUKORRHEA 09/20/2013 NATALIE JAIN DO Ot 625.9 FEM GENITAL SYMPTOMS NOS 09/20/2013 NATALIE JAIN DO Ot 646.83 PREG COMPL NEC-ANTEPART 09/20/2013 NATALIE JAIN DO Ot 648.83 ABN GLUCOSE-ANTEPARTUM 09/20/2013 NATALIE JAIN DO Ot 654.73 ABNORM VAGINA-ANTEPARTUM 09/20/2013 NATALIE JAIN DO Ot V23.41 PREG W HISTORY OF PRE-TERM LABOR 10/03/2013 RAAD LOZANO MD Ot 288.60 LEUKOCYTOSIS, UNSPECIFIED 10/03/2013 RAAD LOZANO MD Ot 644.03 THRT CASEY LABOR-ANTEPART 10/03/2013 RAAD LOZANO MD Ot 646.83 PREG COMPL NEC-ANTEPART 10/03/2013 RAAD LOZANO MD Ot 655.73 DECR MOVEMNT ANTEPARTUM CONDITION 10/03/2013 RAAD LOZANO MD, Ot V23.41 PREG W HISTORY OF PRE-TERM LABOR 10/17/2013 RAAD LOZANO MD Ot 644.03 THRT CASEY LABOR-ANTEPART 10/19/2013 RAAD LOZANO MD, Ot 644.03 THRT CASEY LABOR-ANTEPART 10/31/2013 RAAD LOZANO MD, Ot 657.01 POLYHYDRAMNIOS,DEL W OR W/O MENTN ANTEPA 10/31/2013 RAAD LOZANO MD Ot V27.0 DELIVER-SINGLE LIVEBORN 10/26/2018 SIMBA RIOS DO Ot N81.4 UTEROVAGINAL PROLAPSE, UNSPECIFIED 10/26/2018 JENNIFER RIOS DOA C Ot N92.0 EXCESSIVE AND FREQUENT MENSTRUATION WITH 10/26/2018 JENNIFER RIOS DOA C Ot N94.6 DYSMENORRHEA, UNSPECIFIED 10/26/2018 JENNIFER RIOS DOA Danilo Ot Z01.812 ENCOUNTER FOR PREPROCEDURAL LABORATORY E 10/26/2018 SIMBA RIOS DO Ot Z11.2 ENCOUNTER FOR SCREENING FOR OTHER BACTER Procedures Code Description Performed By Performed On 73.59 MANUAL ASSIST DELIV NEC 10/30/2013 Results Test Result Range Pap Lb, HPV-hr - 01/28/17 11:20 HPV, high-risk Negative Negative DIAGNOSIS: Comment Specimen adequacy: Comment Clinician provided ICD10: Comment Performed by: Comment Electronically signed by: Comment . . Note: Comment Aerobic Bacterial Culture - 01/28/17 11:20 Aerobic Bacterial Culture Note Genital Culture, Routine - 01/28/17 11:20 Genital Culture, Routine Note THYROID ANALYZER - 10/30/17 09:26 TSH 1.24 mIU/L NRG Methicillin resistant Staphylococcus aureus (MRSA) screening culture - 11:55 Methicillin resistant Staphylococcus aureus (MRSA) screening culture NEG NRG Complete blood count (CBC) with automated white blood cell (WBC) differential - 10/22/18 12:00 Blood leukocytes automated count (number/volume) 10.3 10*3/uL 4.3-11.0 Blood erythrocytes automated count (number/volume) 4.98 10*6/uL 4.35-5.85 Venous blood hemoglobin measurement (mass/volume) 15.0 g/dL 11.5-16.0 Blood hematocrit (volume fraction) 44 % 35-52 Automated erythrocyte mean corpuscular volume 88 [foz_us] 80-99 Automated erythrocyte mean corpuscular hemoglobin (mass per erythrocyte) 30 pg 25-34 Automated erythrocyte mean corpuscular hemoglobin concentration measurement ( mass/volume) 34 g/dL 32-36 Automated erythrocyte distribution width ratio 14.5 % 10.0-14.5 Automated blood platelet count (count/volume) 312 10*3/uL 130-400 Automated blood platelet mean volume measurement 9.7 [foz_us] 7.4-10.4 Automated blood neutrophils/100 leukocytes 67 % 42-75 Automated blood lymphocytes/100 leukocytes 21 % 12-44 Blood monocytes/100 leukocytes 10 % 0-12 Automated blood eosinophils/100 leukocytes 1 % 0-10 Automated blood basophils/100 leukocytes 1 % 0-10 Blood neutrophils automated count (number/volume) 6.9 10*3 1.8-7.8 Blood lymphocytes automated count (number/volume) 2.2 10*3 1.0-4.0 Blood monocytes automated count (number/volume) 1.1 10*3 0.0-1.0 Automated eosinophil count 0.1 10*3/uL 0.0-0.3 Automated blood basophil count (count/volume) 0.1 10*3/uL 0.0-0.1 Blood type T Indirect antibody screen panel - 10/22/18 12:00 ABO+Rh group ABP NRG Blood group antibody screen NEGATIVE NRG Complete urinalysis with reflex to culture - 10/22/18 12:03 Urine color determination YELLOW NRG Urine clarity determination CLEAR NRG Urine pH measurement by test strip 5 5-9 Specific gravity of urine by test strip 1.020 1.016- 1.022 Urine protein assay by test strip, semi-quantitative NEGATIVE NEGATIVE Urine glucose detection by automated test strip NEGATIVE NEGATIVE Erythrocytes detection in urine sediment by light microscopy 2+ NEGATIVE Urine ketones detection by automated test strip NEGATIVE NEGATIVE Urine nitrite detection by test strip NEGATIVE NEGATIVE Urine total bilirubin detection by test strip NEGATIVE NEGATIVE Urine urobilinogen measurement by automated test strip (mass/volume) NORMAL NORMAL Urine leukocyte esterase detection by dipstick 2+ NEGATIVE Automated urine sediment erythrocyte count by microscopy (number/high power field) [HPF] NRG Automated urine sediment leukocyte count by microscopy (number/high power field ) [HPF] NRG Bacteria detection in urine sediment by light microscopy FEW NRG Squamous epithelial cells detection in urine sediment by light microscopy 10-25 NRG Crystals detection in urine sediment by light microscopy NONE NRG Casts detection in urine sediment by light microscopy NONE NRG Mucus detection in urine sediment by light microscopy NEGATIVE NRG Complete urinalysis with reflex to culture YES NRG Bacterial urine culture - 10/22/18 12:03 Bacterial urine culture SEE REPORT NRG COLONY COUNT . NRG Encounters ACCT No. Visit Date/Time Discharge Status Pt. Type Provider Facility Loc./Unit Complaint [id number] 10/22/2018 11:37:00 10/22/2018 12:10:00 DIS Outpatient SIMBA RIOS DO [facility] PREOP MENORRHAGIA; UTERINE PROLAPSE; DYSMENORRHEA [id number] 10/30/2013 09:42:00 10/31/2013 18:15:00 DIS Inpatient RAAD LOZANO MD [facility] WS LABOR [id number] 10/19/2013 07:20:00 10/19/2013 09:30:00 DIS Outpatient RAAD LOZANO MD [facility] WSo LEAKING FLUID/ BLOOD [id number] 10/17/2013 14:23:00 10/17/2013 18:10:00 DIS Outpatient RAAD LOZANO MD [facility] WSo PELVIC PAIN AND PRESSURE [id number] 10/02/2013 15:55:00 10/03/2013 10:00:00 DIS Inpatient RAAD LOZANO MD [facility] WS CONTRACTIONS [id number] 09/20/2013 09:39:00 09/20/2013 13:35:00 DIS [facility] [id number] 08/21/2013 18:00:00 08/21/2013 21:57:00 DIS Outpatient RAAD LOZANO MD [facility] WSo PAIN [id number] 05/23/2013 12:51:00 05/23/2013 23:59:59 CLS Outpatient [id number] 04/04/2013 11:59:00 04/04/2013 13:37:00 DIS Emergency MARION NEAL, YENIFER Mathew [facility] ER 7 WEEKS CRAMPING SPOTTING DEHRYDRATION [id number] 10/27/2018 06:00:00 ACT Outpatient SIMBA RIOS DO [facility] SDC MENORRHAGIA; DYSMENORRHEA; UTERINE PROLAPSE [id number] 08/29/2015 10:50:00 Document Registration [id number] 08/29/2015 10:50:00 Document Registration [id number] 02/04/2017 18:11:00 Document Registration [id number] 03/25/2018 08:20:00 03/25/2018 23:59:59 CLS Outpatient [facility] [place] [id number] 10/30/2017 08:40:00 Document Registration [id number] 01/31/2017 13:06:00 Document Registration [id number] 06/23/2018 09:20:00 06/23/2018 23:59:59 CLS Outpatient [facility] [id number] 01/31/2017 15:09:00 Document Registration
[2018-10-27 06:35] VITALS: BP 148/89
[2018-10-27] MEDS ORDERED: ceFAZolin 1,000 MG/10 ML (ANCEF) VIAL ONE (06:42)
[2018-10-27] MEDS ORDERED: metroNIDAZOLE 500MG/100ML IVPB 100 ML ONE (06:42)
[2018-10-27] MEDS ORDERED: NS (IVPB) 50 ML ONE (06:42)
[2018-10-27] MEDS: LACTATED RINGERS 1,000 ML IV PRN ×3 (06:54→10:07)
[2018-10-27] MEDS ORDERED: fentaNYL INJECTION 250 MCG/5 ML AMP ONE (06:55)
[2018-10-27] MEDS ORDERED: MIDAZOLAM 2 MG/2 ML (VERSED) VIAL ONE (06:56)
[2018-10-27] MEDS ORDERED: BUPIVACAINE 0.25% 30 ML (SENSORCAINE) VIAL ONE (06:56)
[2018-10-27] MEDS ORDERED: ceFAZolin INJECTION 1,000 MG in NS (IVPB) 50 ML IV ONE (07:00)
[2018-10-27] MEDS ORDERED: metroNIDAZOLE 500MG/100ML IVPB 100 ML IV ONE (07:00)
--- NOTE | 2018-10-27 07:28 | Progress Note-Pre Operative ---
Pre-Operative Progress Note H&P Reviewed The H&P was reviewed, patient examined and no changes noted. Date Seen by Provider: Oct 27, 2018 Time Seen by Provider: 07:25 Date H&P Reviewed: Oct 27, 2018 Time H&P Reviewed: 07:15 Pre-Operative Diagnosis: menorrhagia, dysmenorrhea, uterine prolapse SIMBA RIOS DO Oct 27, 2018 07:28
[2018-10-27] MEDS ORDERED: LIDOCAINE JELLY 2% 6 ML SYRINGE ONE (09:25)
[2018-10-27] MEDS ORDERED: ONDANSETRON 4 MG/2 ML (SDV) Z0FRAN ONE (09:25)
[2018-10-27] MEDS ORDERED: LIDOCAINE PF 2% 5 ML (XYLOCAINE) VIAL ONE (09:25)
[2018-10-27] MEDS ORDERED: SEVOFLURANE (ULTANE) 15 ML INHAL SOLN ONE ×3 (09:25→09:35)
[2018-10-27] MEDS ORDERED: proPOfol 200 MG/20 ML (DIPRIVAN) VIAL IV ONE (09:25)
[2018-10-27] MEDS ORDERED: LACTATED RINGERS 1,000 ML IV ONE (09:25)
[2018-10-27] MEDS ORDERED: ROCURONIUM 10 MG/ML 5 ML SYRINGE IV ONE (09:25)
[2018-10-27] MEDS ORDERED: KETOROLAC 30 MG/ML VIAL ONE (09:25)
[2018-10-27] MEDS ORDERED: DOCUSATE SODIUM 100 MG (COLACE) CAP PO PRN (09:30)
[2018-10-27] MEDS ORDERED: HYDROmorphone 2 MG/ML VIAL (DILAUDID) IV PRN (09:30)
[2018-10-27] MEDS ORDERED: LACTATED RINGERS 1,000 ML IV SCH (09:30)
[2018-10-27] MEDS ORDERED: KETOROLAC 30 MG/ML VIAL IV PRN (09:30)
[2018-10-27] MEDS ORDERED: ONDANSETRON 4 MG/2 ML (SDV) Z0FRAN IV PRN (09:30)
[2018-10-27] MEDS ORDERED: SIMETHICONE 80 MG (MYLICON) CHEW PO PRN (09:30)
[2018-10-27] MEDS ORDERED: ANTACID SUSP 30 ML UDC (MYLANTA) PO PRN (09:30)
--- NOTE | 2018-10-27 09:41 | Operative Report ---
Operative Report Date of Procedure/Surgery Oct 27, 2018 Surgeon (s) SIMBA RIOS DO Parts Picker (s): BENNETT Hyman asst. needed to retract important neurovascular structures Post-Operative Diagnosis Menorrhagia, dysmenorrhea, uterine prolapse Procedure Performed RaTH, bilateral salpingctomy Description of Procedure Anesthesia Type: General Estimated blood loss (mL): minimal Specimen(s) collected/removed uterus tubes and ovaries Description of the Procedure After informed consent was obtained, patient was taken into the operating room where general anesthetic was found to be adequate. She was prepped and draped in the usual sterile fashion in the dorsal lithotomy position. A Sams catheter was placed. A speculum was placed in the vagina. The anterior lip of the cervix was grasped with a sharp toothed tenaculum. The uterus was sounded and depth was approximately 10 cm centimeters. I placed the Carlotta device. And then set the Carlotta to 10and a 3.5 cm collar was advanced over the cervix. I inserted the Carlotta without difficulty, inflating the balloon and securing it around the fornix of the cervix. The collar was then secured with sutures at 12 o'clock. Attention was then turned to the patient's abdomen. A supraumbilical incision was made about 10 mm. A Veress needle was inserted and I confirmed intraabdominal placement with a drop in pressure and the saline drop test. I then insufflated the abdomen to a maximum of 15 mmHg with warmed CO2 gas. I then placed an 10 mm trocar and then the Da Glynn camera and intraperitoneal placement was confirmed. I then determined the procedure could be continued robotically. The first robotic port was placed about 15 cm lateral to the right and left of the umbilical placement and slightly inferior. These are both 8 mm trocars. These were placed under direct visualization of the laparoscope. 0.25% Marcaine was injected prior to placement of all trocars. When all placements were confirmed, the patient was placed in steep Trendelenburg allowing adequate visualization and the robot was brought in for docking. The docking was accomplished without difficulty. A survey of the pelvis confirmed the above mentioned findings. Now I was able to visualize the round ligaments bilaterally and grasped them and cauterized with bipolar cautery and then cut with my radha. At this point , I then did bilateral salpingectomy. I cut along the mesosalpinx with the monopolar radha and then dissected up to the cornu bilaterally. I then moved to the uteroovarian ligaments. I sealed the vessel and transected bilaterally using the bipolar cautery and then cut with the monopolar radha. I then moved my dissection to the posterior leaves of the broad ligament. I dissected the posterior leaves of the broad ligament off the uterine arteries skeletonizing them bilaterally. I then took a second clamp with the bipolar cautery and with the radha, transected the vessels away from the lateral aspect to the cervical stroma. I dissected the anterior peritoneum off the lower uterine segment. I continually pushed the bladder back and I took excessively great care and I was eventually able to dissect the vesicouterine peritoneum off the lower uterine segment. The appendix was seen and found to be normal in appearance. There were some adhesions in the left pelvis that needed to be taken down before I could do the salpingectomy and this was accomplished without excessive bleeding. I then dissected in a V fashion towards the midline between the uterosacral ligaments. This allowed me to skeletonize the uterine vessels bilaterally. The balloon on the CARLOTTA was insufflated. This allowed me to see the CARLOTTA circumferentially. I then performed a colpotomy anteriorly and then amputate with cervix away from the vaginal fornix. I then continued the colpotomy circumferentially. Once this was performed, the podiatric assistant removed the uterus through the vagina. A sponge was left in the vagina to maintain pneumoperitoneum. I then began closure of the vaginal cuff. I closed the apices of the vaginal cuff with 2-0 Vicryl V lock sutures with a colposuspension through the uterosacral ligaments. This suspended the apices of the vaginal cuff. I extended this to the midline from both sides and overlapped the V lock sutures in the midline. Excellent closure is noted and hemostasis is achieved. I was able to now see the ureters bilaterally and these are well away from the area of dissection. The robot was now undocked and returned to laparoscopy. The pelvis was irrigated and Cesar-Seal was placed along the vaginal cuff. All the needles were removed from the patient's abdomen. The gas and instruments were removed from the abdomen. The supraumbilical fascial incisions was closed with 0 vicryl in a figure of 8 fashion and then all the skin incisions were closed with 4-0 Monocryl and then skin glue was placed. Bandages were placed. Sponge, lap, needle and instrument counts were correct times two. Findings of the Procedure enlarged boggy uterus, normal ovaries, tubal cysts adhesions, left pelvic sidewall, filmy to anterior peritoneum Allergies and Home Medications Allergies Coded Allergies: medroxyprogesterone acetate (Unverified Allergy, Unknown, 09/20/13) Home Medications Albuterol Sulfate 1 Puff Puff, 2 PUFF IH Q4H PRN for WHEEZING, (Reported) 1 PUFF = 90 MCG Lamotrigine 200 Mg Tablet, 200 MG PO HS, (Reported) Lurasidone HCl 20 Mg Tablet, 20 MG PO DAILY@1800, (Reported) TAKE WITH EVENING MEAL Ramelteon 8 Mg Tablet, 8 MG PO HS PRN for SLEEP, (Reported) Patient Home Medication List Home Medication List Reviewed: Yes SIMBA RIOS DO Oct 27, 2018 09:41
[2018-10-27] MEDS ORDERED: ONDANSETRON 4 MG/2 ML (SDV) Z0FRAN IVP PRN (10:00)
[2018-10-27] MEDS ORDERED: morphine INJ 10 MG/ML 1ML (SYR OR VIAL) IVP ONE (10:00)
[2018-10-27] MEDS ORDERED: MEPERIDINE (DEMEROL) INJ 50 MG/ML IVP ONE (10:00)
[2018-10-27] MEDS ORDERED: fentaNYL INJECTION 100 MCG/2 ML AMP IVP ONE (10:00)
[2018-10-27] MEDS ORDERED: morphine INJ 10 MG/ML 1ML (SYR OR VIAL) ONE (10:03)
[2018-10-27 11:00] VITALS: BP 126/58
[2018-10-27] MEDS: HYDROcodone/APAP 7.5 MG/325 MG (LORTAB, LORCET PLUS) TABLET PO PRN ×2 (15:21→15:32)
[2018-10-27 16:00] VITALS: BP 140/85
[2018-10-27] MEDS ORDERED: SIME80TA16 PO (16:37)
[2018-10-27] MEDS ORDERED: HYDR-34 PO (16:37)
[2018-10-27] MEDS ORDERED: DOCU100C37 PO (16:37)
[2018-10-27] MEDS ORDERED: IBUP-844 PO (16:37)
--- NOTE | 2018-10-27 16:39 | Discharge Inst-Women's Service ---
Discharge Inst-Women's Serv Depart Medication/Instructions New, Converted or Re-Newed RX: RX on Chart Final Diagnosis menorrhagia dysmenorrhea uterine prolapse Consults/Follow Up Additional Follow Up: Yes (1 -2 weeks with Dolores. 12 weeks with Oswaldo) Activity Activity: Activity as Tolerated Driving Instructions: No Driving for 1 Week NO SMOKING: NO SMOKING Nothing Inside Vagina: No Douching, No [place], No Tampons Diet Discharge Diet: No Restrictions Symptoms to Report to : Swelling Increased, Bleeding Excessive, Pain Increased, Fever Over 101 Degrees F, Vaginal Bleeding Increase, Cramps in Feet or Legs, Vaginal Discharge Foul For Any Problems or Questions: Contact Your Physician Skin/Wound Care Infection Signs and Symptoms: Increased Redness, Foul Odor of Wound, Increased Drainage, Skin Itchy or Has a Rash, Increased Swelling, Temperature Above 101 F Operative Area Clean and Dry: You May Remove Bandage (remove in 3 days. If soiled or wet may replace. Remove in shower and do not pull off glue) Stitches/[place]/Dermabond: Dermabond Bathing Instructions: SIMBA Hernandez DO Oct 27, 2018 16:39
[2018-10-28] MEDS ORDERED: IBUPROFEN 600 MG (MOTRIN) TAB PO PRN (02:15)
--- NOTE | 2018-10-28 14:01 | Anesthesia-General Post-Op ---
General Patient Condition Mental Status/LOC: Same as Preop Cardiovascular: Satisfactory Nausea/Vomiting: Absent Respiratory: Satisfactory Pain: Controlled Complications: Absent Post Op Complications Complications None Follow Up Care/Instructions Patient Instructions None needed. Anesthesia/Patient Condition Patient Condition Patient is already discharged to home. No complications noted per nursing staff. GEORGE MCINTOSH DO Oct 28, 2018 14:01
== END 2018-10-27 17:20 | disposition home or self-care (01) ==
LOC: SDC 06:00 → WS 10:50 → SDC 17:20
PROVIDERS: ATTEND Obstetrics & Gynecology
DX: N92.0 Excessive and frequent menstruation with regular cycle (principal); N94.5 Secondary dysmenorrhea; N81.2 Incomplete uterovaginal prolapse; N83.8 Other noninflammatory disorders of ovary, fallopian tube and broad ligament; N87.0 Mild cervical dysplasia; D25.2 Subserosal leiomyoma of uterus; J45.909 Unspecified asthma, uncomplicated; F17.210 Nicotine dependence, cigarettes, uncomplicated; E66.01 Morbid (severe) obesity due to excess calories; Z68.41 Body mass index [BMI] 40.0-44.9, adult; Z79.899 Other long term (current) drug therapy
CPT/HCPCS: 36415; 84703; 86850; 86900; 86901; 88307; 94664